=== PATIENT | male | born 1960 | race Caucasian/White ===

== ENCOUNTER 2018-09-18 08:33 | Inpatient (IN) | payer BC, SELFPAY ==
[2018-09-18] VITALS (32 sets, daily range): BP systolic 109–180; BP diastolic 81–113; PULSE 56–79; RESP 11–22; TEMP 36.2–36.9; O2SAT 94–100; BMI 30.7; BMI 29.9
--- NOTE | 2018-09-18 08:39 | RAD_ITS ---
STUDY: X-RAY CHEST REASON FOR EXAM: Male, 58 years old. Chest pain TECHNIQUE: Single AP portable view of the chest. COMPARISON: None. FINDINGS: The lungs are clear and expanded. There is no demonstrated pleural abnormality. Normal size heart. Normal mediastinum and gumaro. Normal visualized pulmonary arteries. Normal visualized aortic arch and descending thoracic aorta. Normal visualized thoracic spine. Normal visualized ribs, clavicles, and shoulders. There is no demonstrated abnormality of the visualized soft tissue structures of the upper abdomen. RAD/Chest 1 View (Portable) IMPRESSION: Normal x-ray examination of the chest. Electronically Signed: Guilherme Ruelas DO at 9:23 EST Tel , Service support ,
--- NOTE | 2018-09-18 08:39 | EKG12_ITS ---
Test Reason : CP Blood Pressure : / mmHG Vent. Rate : 074 BPM Atrial Rate : 074 BPM P-R Int : 152 ms QRS Dur : 094 ms QT Int : 350 ms P-R-T Axes : 019 030 145 degrees QTc Int : 388 ms Normal sinus rhythm ST & T wave abnormality, consider anterolateral ischemia Abnormal ECG Confirmed by DWAYNE WARNER, BRITNEY ([id number]), scientific publications editor ASHKAN MATTA ([id number]) on 09/23/2018 5:03:12 PM Referred By: INES Confirmed By:BRITNEY RICE MD
[2018-09-18] MEDS: Aspirin 81 MG TAB.CHEW 324 MG PO (08:43)
--- NOTE | 2018-09-18 08:47 | ED.VISSUMM ---
- ER Visit Summary Date of Service: 09/18/18 Chief Complaint: Chest pain History of Present Illness: The patient is a 58 M history of anxiety. No cardiac history. Thinks he may have had a stress test about 10 years ago that was negative but nothing more recent. He is never had a he states for the last several months he has had a bronchitis. He was on prednisone which is since he has finished. States of the last week he has had exertional chest discomfort. Heaviness in the midsternal region. No radiation. No pain in his jaw, neck or down his left arm. No back pain. He does have associated dyspnea. This is definitely worsened by exertion and better with rest. 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 Also with walking steps she has exertional chest pain. Currently is pain-free. Physical Examination: Middle-aged male. No acute distress. Vital signs are stable. He is afebrile. His pulse ox is 9 9% on room air. No hypoxia. H EENT exam unremarkable. JVD. Lungs clear to auscultation bilaterally. Heart regular rate and rhythm no murmur rate about 80. Chest wall nontender. Abdomen soft and nontender. Normal bowel sounds no peritoneal signs. Patient is moving all 4 extremities. Calves are nontender without edema or cords. He has equal and symmetrical strong radial pulses. Normal bottle and glass inspector strength. Normal dorsi and plantar flexion. Back is nontender. Neurologically he is awake and alert with no focal motor deficits. Test Results: CBC normal. BMP normal. Troponin abnormal 0.722 and elevated. EKG normal sinus rhythm rate of 74. Inverted T waves in V2 through V6 with subtle ST-T wave depression. Also in lead I and aVL. No ST elevation. No acute AL. Portable 1 view chest x-ray normal cardiac silhouette mediastinum. Emergency Department Course and Treatment: Patient is currently symptom and pain-free. He was given p.o. aspirin in the ER. Repeat exam at ks 9:18 AM patient is doing well. He and I and his went over all his test results. I have cardiology on page. Treatment Plan: [] Disposition: Admission Impression: Acute chest pain with an abnormal EKG and elevated troponin Acute coronary syndrome This note was generated with HubCh[employer]ation software. It may contain incorrect words, spelling, and punctuation that were not noted in review of the chart prior to signing ED Disposition - Plan for ED Patient: Referrals: Anand Shaver MD [Primary Care Provider] -
[2018-09-18 08:54] LABS: Absolute Lymphocyte Count 2.84 X10^3/ul (0.83-4.51); Absolute Neutrophil Count 3.2 X10^3/uL (2.0-7.7); Basophil# 0.01 X10^3/uL; Basophil% 0.1 % (0-1); Eosinophils% 1.5 % (0-5); Hematocrit 47.8 % (40-54); Hemoglobin 15.5 g/dl (13.0-16.5); Lymphocyte # 2.84 X10^3/ul (4.0); Mean Corp Hgb Conc 32.4 g/gl (32-36); Mean Corpuscular Hgb 30.5 pg (27.0-32.0); Mean Corpuscular Volume 94.1 fL (80-94); Mean Platelet Vol. 11.8 fl (6.2-12.0); Monocyte# 0.56 X10^3/uL; Monocyte% 8.3 % (0-10); Neutrophil # 3.23 X10^3/uL (2.7-7.7); Neutrophil % 47.8 % (47-70); Platelet Count 165 K/mm3 (150-450); RBC Distribution Width CV 13.7 % (11.6-14.6); RBC Distribution Width SD 46.9 fl (35.1-43.9); Red Blood Count 5.08 M/mm3 (4.6-6.2); White Blood Count 6.8 K/mm3 (4.4-11.0)
[2018-09-18 08:56] LABS: POSITIVE COUNT NO; POSITIVE DIFFERENTIAL NO; POSITIVE MORPHOLOGY NO
--- NOTE | 2018-09-18 08:58 | ED.DCSUM_ITS ---
- ER Visit Summary Date of Service: 09/18/18 Chief Complaint: Chest pain History of Present Illness: The patient is a 58 M history of anxiety. No cardiac history. Thinks he may have had a stress test about 10 years ago that was negative but nothing more recent. He is never had a he states for the last several months he has had a bronchitis. He was on prednisone which is since he has finished. States of the last week he has had exertional chest discomfort. Heaviness in the midsternal region. No radiation. No pain in his jaw, neck or down his left arm. No back pain. He does have associated dyspnea. This is definitely worsened by exertion and better with rest. 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 Also with walking steps she has exertional chest pain. Currently is pain-free. Physical Examination: Middle-aged male. No acute distress. Vital signs are stable. He is afebrile. His pulse ox is 9 9% on room air. No hypoxia. H EENT exam unremarkable. JVD. Lungs clear to auscultation bilaterally. Heart regul ar rate and rhythm no murmur rate about 80. Chest wall nontender. Abdomen soft and nontender. Normal bowel sounds no peritoneal signs. Patient is moving all 4 extremities. Calves are nontender without edema or cords. He has equal and symmetrical strong radial pulses. Normal audio visual secretary strength. Normal dorsi and plantar flexion. Back is nontender. Neurologically he is awake and alert with no focal motor deficits. Test Results: CBC normal. BMP normal. Troponin abnormal 0.722 and elevated. EKG normal sinus rhythm rate of 74. Inverted T waves in V2 through V6 with sub tle ST-T wave depression. Also in lead I and aVL. No ST elevation. No acute [place]. Portable 1 view chest x-ray normal cardiac silhouette mediastinum. Emergency Department Course and Treatment: Patient is currently symptom and pain-free. He was given p.o. aspirin in the ER. Repeat exam at la 9:18 AM patient is doing well. He and I and his went over all his test results. I have cardiology on page. Treatment Plan: [] Disposition: Admission Impression: Acute chest pain with an abnormal EKG and elevated troponin Acute coronary syndrome This note was generated with Operating Analyticsation software. It may contain incorrect words, spelling, and punctuation that were not noted in review of the chart prior to signing ED Disposition - Plan for ED Patient: Referrals: Anand Shaver MD [Primary Care Provider] -
[2018-09-18 09:12] LABS: BUN 15 mg/dL (7-18); Creatinine, Serum 1.03 mg/dL (0.70-1.30); Estimated Creatinine Clearance 86.19 ml/min; Glucose 104 mg/dL (74-106)
[2018-09-18 09:13] LABS: Anion Gap 7 (5-15); BUN/Creat Ratio 14.6 RATIO (10-20); Calcium,Total 9.2 mg/dL (8.5-10.1); Chloride 105 mmol/L (98-107); EST Glomerular Filtration Rate 78 mL/min (>60); Est Glom Filt Rate - Afr Amer 95 mL/min (>60); Potassium 3.8 mmol/L (3.5-5.1); Sodium Level 141 mmol/L (136-145)
--- NOTE | 2018-09-18 09:18 | ED.RN ---
LAB RESULTED ELEVATED TROPONIN, PHYSICIAN NOTIFIED
--- NOTE | 2018-09-18 09:57 | CASEMGMT ---
According to [place] website, the following are in-network tertiary facilities: [facility], [facility], [facility], [facility], [facility], [facility], [facility], [place], [facility], and . Maral SUAREZ CM
[2018-09-18] MEDS: TICAGRELOR 90 MG TABLET 180 MG PO (10:04)
--- NOTE | 2018-09-18 10:15 | PCM.CONS.C ---
Reason for Consult Date of Consultation: 09/18/18 History of Present Illness: The patient is a 58 year old M with no previous medical history who says that more recently has been having some exertional chest burning going up his neck. 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 He also did some shoveling of snow yesterday and think that he felt it. He also notes that his exercise capacity has reduced significantly. In addition to this he has had some numbness and tingling sensation that he is not been able to explain. He has not had any nausea no dizziness or diaphoresis no near syncope or syncope. This morning after feeling the same sensation at work he was uncomfortable and so he came to the emergency room for an evaluation. His electrocardiogram demonstrated lateral ST changes and his troponin was noted to be abnormal. Cardiology was called from the ER for further evaluation. [] Past Medical History Allergies/Adverse Reactions: Allergies No Known Allergies Allergy (Verified 09/18/18 08:36) Home Medications: Ambulatory Orders Medication Instructions Recorded Propranolol HCl [Inderal] 10 mg PO PRN PRN 09/18/18 Surgical History: appendectomy Lives: With Family Smoking Status: Never smoker Alcohol: None Drugs: None Review of Systems - Review of Systems General: Reports: Fatigue. Denies: Fever, Night Sweats Cardiovascular: Reports: Chest Discomfort with Exertion, Chest Tightness. Denies: Chest Discomfort, Shortness of Breath, Orthopnea, PND, Peripheral Edema, Palpitations, Lightheadedness, Dizziness, Near Syncope, Syncope Respiratory: Denies: Cough, Sputum Production, Hemoptysis Gastrointestinal: Reports: Heart Burn. Denies: Hematemesis, Hematochezia, Melena Genitourinary: Denies: Dysuria, Hematuria Muscoloskeletal: Denies: Myalgias Skin: Denies: Rash Neurological: Denies: Dizziness Psychiatric: Reports: Anxiety Hematologic/ Lymphatic: Denies: Anemia Subjectve: Pleasant gentleman in no apparent distress Objective: Vital Signs Temp Pulse Resp BP Pulse Ox 98.4 F 62 12 143/99 H 96 09/18/18 08:34 09/18/18 10:05 09/18/18 10:05 09/18/18 10:05 09/18/18 10:05 Oxygen Delivery Method Room Air Weight: 233 lb 0.458 oz Body Mass Index (BMI) 30.7 General: Awake, Alert, Oriented x 3 HEENT: PERRL, EOMI, Sclera Non Icteric Neck: Supple, Good ROM, No Lymph Node Enlargement Lungs: Clear to auscultation Cardiovascular: Regular Rhythm, Normal S1, Normal S2, No Murmurs, No Rubs, No Gallops Vascular: No Carotid Bruits, Normal Femoral Pulses, Normal Radial Pulses, Normal Dorsalis Pedal Pulse, Normal Posterior Tibial Pulses Abdomen: Bowel Sounds Present, Soft, Non Tender, No HSM, No Organomegaly Extremities: No Cyanosis, No Clubbing, No edema Musculoskeletal: No Erythema Neurological: No Focal Motor or Sensory Deficit 09/18/18 08:36: WBC 6.8, RBC 5.08, Hgb 15.5, Hct 47.8, MCV 94.1 H, MCH 30.5, MCHC 32.4, RDW 13.7, RDW Differential 46.9 H, Plt Count 165, MPV 11.8, Immature Gran % (Auto) 0.300, Neut % (Auto) 47.8, Lymph % (Auto) 42.0 H, [place] % (Auto) 8.3, Eos % (Auto) 1.5, Baso % (Auto) 0.1, Absolute Neuts (auto) 3.2, Total Counted Not Reportable 09/18/18 08:36: Sodium 141, Potassium 3.8, Chloride 105, Carbon Dioxide 29.0, Anion Gap 7, BUN 15, Creatinine 1.03, Est GFR (MDRD) Af Amer 95, Est GFR (MDRD) Non-Af 78, BUN/Creatinine Ratio 14.6, Glucose 104, Calcium 9.2, Troponin I 0.722 H* Rhythm: EKG: Normal sinus rhythm with lateral ST changes ECHO: Stress Test: Cardiac Cath: PCI: CT Surgery: Holter monitor: EPS: PPM: CXR: Chest CT Scan: Assessment/Plan 1. Non-ST elevation myocardial infarction Patient presents with chest discomfort which is concerning for non-ST elevation myocardial infarction and progressive angina. My recommendation at this time is to load him with aspirin, Brilinta, and expedite his investigation and management with a cardiac catheterization. The risk benefits and alternatives been explained to him he understands and agrees to proceed. Depending on the findings further recommendations will be made. Cardiac cath showed: Normal left main coronary artery Left anterior descending artery with high-grade 95% proximal small calcified stenosis Left circumflex artery with mild disease Right coronary artery with mild diffuse disease Preserved left ventricular systolic function Based on the above angiographic findings the patient would be referred for immediate angioplasty. Agent would continue with aggressive risk factor modification Thank you for allowing me to participate in the care of your patient. Please don't hesitate to call if any issues arise
--- NOTE | 2018-09-18 10:19 | CON.PCM_ITS ---
Reason for Consult Date of Consultation: 09/18/18 History of Present Illness: The patient is a 58 year old M with no previous medical history who says that more recently has been having some exertional chest burning going up his neck. 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 He also did some shoveling of snow yesterday and think that he felt it. He also notes that his exercise capacity has reduced significantly. In addition to this he has had some numbness and tingling sensation that he is not been able to explain. He has not had any nausea no dizziness or diaphoresis no near syncope or syncope. This morning after feeling the same sensation at work he was uncomfortable and so he came to the emergency room for an evaluation. His electrocardiogram demonstrated lateral ST changes and his troponin was noted to be abnormal. Cardiology was called from the ER for further evaluation. [] Past Medical History Allergies/Adverse Reactions: Allergies No Known Allergies Allergy (Verified 09/18/18 08:36) Home Medications: Ambulatory Orders Medication Instructions Recorded Propranolol HCl [Inderal] 10 mg PO PRN PRN 09/18/18 Surgical History: appendectomy Lives: With Family Smoking Status: Never smoker Alcohol: None Drugs: None Review of Systems - Review of Systems General: Reports: Fatigue. Denies: Fever, Night Sweats Cardiovascular: Reports: Chest Discomfort with Exertion, Chest Tightness. Denies: Chest Discomfort, Shortness of Breath, Orthopnea, PND, Peripheral Edema, Palpitations, Lightheadedness, Dizziness, Near Syncope, Syncope Respiratory: Denies: Cough, Sputum Production, Hemoptysis Gastrointestinal: Reports: Heart Burn. Denies: Hematemesis, Hematochezia, Melena Genitourinary: Denies: Dysuria, Hematuria Muscoloskeletal: Denies: Myalgias Skin: Denies: Rash Neurological: Denies: Dizziness Psychiatric: Reports: Anxiety Hematologic/ Lymphatic: Denies: Anemia Subjectve: Pleasant gentleman in no apparent distress Objective: Vital Signs Temp Pulse Resp BP Pulse Ox 98.4 F 62 12 143/99 H 96 09/18/18 08:34 09/18/18 10:05 09/18/18 10:05 09/18/18 10:05 09/18/18 10:05 Oxygen Delivery Method Room Air Weight: 233 lb 0.458 oz Body Mass Index (BMI) 30.7 General: Awake, Alert, Oriented x 3 HEENT: PERRL, EOMI, Sclera Non Icteric Neck: Supple, Good ROM, No Lymph Node Enlargement Lungs: Clear to auscultation Cardiovascular: Regular Rhythm, Normal S1, Normal S2, No Murmurs, No Rubs, No G allops Vascular: No Carotid Bruits, Normal Femoral Pulses, Normal Radial Pulses, Normal Dorsalis Pedal Pulse, Normal Posterior Tibial Pulses Abdomen: Bowel Sounds Present, Soft, Non Tender, No HSM, No Organomegaly Extremities: No Cyanosis, No Clubbing, No edema Musculoskeletal: No Erythema Neurological: No Focal Motor or Sensory Deficit 09/18/18 08:36: WBC 6.8, RBC 5.08, Hgb 15.5, Hct 47.8, MCV 94.1 H, MCH 30.5, MCHC 32.4, RDW 13.7, RDW Differential 46.9 H, Plt Count 165, MPV 11.8, Immature Gran % (Auto) 0.300, Neut % (Auto) 47.8, Lymph % (Auto) 42.0 H, [place] % (Auto) 8.3, Eos % (Auto) 1.5, Baso % (Auto) 0.1, Absolute Neuts (auto) 3.2, Total Counted Not Reportable 09/18/18 08:36: Sodium 141, Potassium 3.8, Chloride 105, Carbon Dioxide 29.0, Anion Gap 7, BUN 15, Creatinine 1.03, Est GFR (MDRD) Af Amer 95, Est GFR (MDRD) Non-Af 78, BUN/Creatinine Ratio 14.6, Glucose 104, Calcium 9.2, Troponin I 0.722 H* Rhythm: EKG: Normal sinus rhythm with lateral ST changes ECHO: Stress Test: Cardiac Cath: PCI: CT Surgery: Holter monitor: EPS: PPM: CXR: Chest CT Scan: Assessment/Plan 1. Non-ST elevation myocardial infarction * Patient presents with chest discomfort which is concerning for non-ST elevation myocardial infarction and progressive angina. * My recommendation at this time is to load him with aspirin, Brilinta, and expedite his investigation and management with a cardiac catheterization. The risk benefits and alternatives been explained to him he understands and agrees to proceed. Depending on the findings further recommendations will be made. * * * Cardiac cath showed: * Normal left main coronary artery * Left anterior descending artery with high-grade 95% proximal small calcified stenosis * Left circumflex artery with mild disease * Right coronary artery with mild diffuse disease * Preserved left ventricular systolic function * Based on the above angiographic findings the patient would be referred for immediate angioplasty. * Agent would continue with aggressive risk factor modification * Thank you for allowing me to participate in the care of your patient. Please don't hesitate to call if any issues arise
--- NOTE | 2018-09-18 11:16 | CL.D_ITS ---
Patient Name: PAIGE REGALADO Study Date: 09/18/2018 Performing: Cliff Quinones MD Ht: 72.83 inches 185 cm : 1960 Wt: 233.69 lbs 106 kg Age: 58 Gender: male BSA: 2.3 PROCEDURE(S) PERFORMED [id number] CLINICAL PROFILE AND INDICATIONS Indications: Worsening Angina Heart Failure: None Stress/Imaging Stress/Image Study Performed: No CONCLUSIONS Severe disease involving a calcified left anterior descending artery stenosis, mild disease noted in the right coronary artery. Preserved ejection fraction noted RECOMMENDATIONS Referred for immediate PCI DESCRIPTION OF PROCEDURE The patient arrived to the procedure lab. The risks and benefits of the procedure as well as a full d escription of our services here and current unavailability of surgical backup were fully explained to the patient and/or their significant other prior to the catheterization. The Timeout was completed, verifying the correct patient and procedure. The patient's procedural site was prepped and draped in the usual fashion. Local anesthetic was given subcutaneously to right radial region with Lidocaine 2% . Using a modified Seldinger technique, arterial access was obtained via the right radial artery, a 6 Fr sheath was inserted. Left Coronary Artery selective angiography was performed in multiple views u sing a 5 Fr. 4.0 [place] catheter. Right Coronary Artery selective angiography was then performed in mu ltiple views using a 5 Fr. 4.0 [place] catheter. Left Ventriculography was performed in [place] projection using a 5 Fr. Pigtail catheter. LV to AO pullback pressures were then recorded. CORONARY ANGIOGRAPHY DOMINANCE: Right Dominant LEFT HEART ASSESSMENT Left Ventricular Ejection Fraction: by LV Gram 60 % Normal LV wall motion Normal Left Ventricular systolic function LEFT MAIN: Angiographically normal LEFT ANTERIOR DECENDING ARTERY: PROX LAD: Moderate calcification, 95 % Stenosis CIRCUMFLEX ARTERY: Non-obstructive RIGHT CORONARY ARTERY: Mild luminal irregularities less than 30% COLLATERAL FLOW: Collateral flow from Right to Left COMPLICATIONS PROCEDURE MEDICATIONS Fentanyl 50 mcg IV Versed 1 mg IV Versed 1 mg IV Versed 1 mg IV Fentanyl 25 mcg IV Versed 1 mg IV Oxygen: 2 L/min via nasal cannula Heparin diluted in 23cc Heparinized saline. Patient given 10cc IA of this solution. 09/18/2018 10:37: 08 Heparin 8000 unit(s) IV 09/18/2018 11:05:31 Verapamil 2.5mg, Ntg 100mcgs, 2000 units of Heparin diluted in 23cc Heparinized saline. Patient give n 10cc IA of this solution. 09/18/2018 10:37:08 SUMMARY OF HEMODYNAMIC DATA Time AIR REST ECG 10:21:30 AO 105/72 (89) SA 10:39:10 LV 122/8, 13 10:52:55 LV 112/7, 13 10:53:01 LV 134/-1, 16 10:55:57 LVp 133/-2, 17 10:56:00 AOp 132/73 (97) 10:56:06 Signed By Cliff Quinones MD On 09/18/2018 11:15:41 AM Cliff Quinones MD
--- NOTE | 2018-09-18 11:48 | EKG12_ITS ---
Test Reason : POST PCI Blood Pressure : / mmHG Vent. Rate : 056 BPM Atrial Rate : 056 BPM P-R Int : 172 ms QRS Dur : 100 ms QT Int : 404 ms P-R-T Axes : 026 063 115 degrees QTc Int : [address] & T wave abnormality, consider anterior ischemia Abnormal ECG When compared with ECG of 18-SEP-2018 08:35, MANUAL COMPARISON REQUIRED, DATA IS UNCONFIRMED Confirmed by DWAYNE WARNER, BRITNEY ([id number]), editorial assistant ASHKAN MATTA ([id number]) on 09/23/2018 5:29:57 PM Referred By: MARIA FERNANDA Confirmed By:BRITNEY RICE MD
--- NOTE | 2018-09-18 11:50 | CL.I_ITS ---
Patient Name: PAIGE REGALADO Study Date: 09/18/2018 Performing: Chastity Yepez MD Ht: 73 inches 185 cm : 1960 Wt: 234 lbs 106 kg Age: 58 Gender: male BSA: 2.3 PROCEDURE(S) PERFORMED [id number] W OR WO PTCA, SINGLE CORONARY ARTERY CLINICAL PROFILE AND CO-MORBIDITIES Indications: Worsening Angina Heart Failure: None Stress/Imaging Stress/Image Study Performed: No CAD Presentations: Unstable angina. CONCLUSIONS Successful PTCA/ALECIA Prox LAD using Resolute Integrity 3.0x38 mm, post-dilated proximally using 3.5 mm balloon RECOMMENDATIONS ASA Amanda Castro for at least 12 months Follow up with Dr. Quinones INTERVENTION INFORMATION LESION SITE: LAD (Proximal) Lesion Complexity: High/C, culprit lesion: Yes, thrombus present: No Pre Stenosis: 95 % Pre intervention KENYA flow: 3 PROCEDURE: Drug Eluting Stent with pre and post dilatation Post Stenosis: 0 % Post intervention KENYA flow: 3 COMPLICATIONS No Complications PROCEDURE MEDICATIONS Fentanyl 50 mcg IV Versed 1 mg IV Versed 1 mg IV Versed 1 mg IV Fentanyl 25 mcg IV Versed 1 mg IV Fentanyl 25 mcg IV Oxygen: 2 L/min via nasal cannula Heparin diluted in 23cc Heparinized saline. Patient given 10cc IA of this solution. 09/18/2018 10:37: 08 Heparin 8000 unit(s) IV 09/18/2018 11:05:31 Heparin 3000 unit(s) IV 09/18/2018 11:38:04 Nitro 200 mcg IC 09/18/2018 11:23:13 Verapamil 2.5mg, Ntg 100mcgs, 2000 units of Heparin diluted in 23cc Heparinized saline. Patient give n 10cc IA of this solution. 09/18/2018 10:37:08 SUMMARY OF HEMODYNAMIC DATA Time AIR REST ECG 10:21:30 AO 105/72 (89) SA 10:39:10 LV 122/8, 13 10:52:55 LV 112/7, 13 10:53:01 LV 134/-1, 16 10:55:57 LVp 133/-2, 17 10:56:00 AOp 132/73 (97) 10:56:06 Signed By Chastity Yepez MD On 09/18/2018 11:48:56 Chastity Yepez MD
[2018-09-18 11:52] LABS: ACT Activated Clotting Time 230 sec (74-137)
--- NOTE | 2018-09-18 12:52 | PCM.HP.STD ---
Problem List (1) Non-ST elevation OK (NSTEMI) Status: Acute History of Present Illness Date of Admission: 09/18/18 Chief Complaint: Chest pain. The patient is a 58 year old M with no significant past medical history presented to the emergency room because of chest pain. His illness started around couple of weeks ago with flulike symptoms, diagnosed with bronchitis and he was given prednisone. He mentioned that since he started on prednisone, he started having intermittent chest pain, retrosternal pain, described as burning, mild, not radiating and without aggravating or relieving factors. He finished the prednisone and yesterday, he felt good but later, he started having the chest pain again last night. Again the pain was retrosternal, described as burning, 4-5 out of 10 in severity, not radiating, associated with mild shortness of breath and dizziness, now worsened with exertion and without relieving factors. Today, he went to work and he has to go a couple of stairs and he started having the chest pain again, associated with shortness of breath and he decided to come to the ER. In the emergency department, his vital signs were stable. His routine blood work was unremarkable. His EKG revealed normal sinus rhythm with minimal T wave inversion in leads V3, V4, V5 and V6, no evidence of acute ST elevation. His troponin was elevated at 0.722. Chest x-ray showed no acute findings. He underwent emergent cardiac catheterization, found to have high-grade 95% stenosis of the proximal LAD, status post PTCA/ALECIA. He is being admitted for acute non-ST elevation OK status post intervention. Past Medical History Past Medical History (Chronic Problems): Chronic Problems Anxiety (Chronic) Allergies No Known Allergies Allergy (Verified 09/18/18 08:36) Home Medications: Ambulatory Orders Medication Instructions Recorded Propranolol HCl [Inderal] 10 mg PO PRN PRN 09/18/18 Surgical History: appendectomy, herniorrhaphy Psychiatric History: No pertinent psych hx Lives: Spouse/ Significant Other Smoking Status: Former smoker Alcohol: None Drugs: None - *Family History Maternal History Items: Hypertension Paternal History Items: No pertinent history, - - No family history of premature CAD. Review of Systems Constitutional: Reports: Weakness, Fatigue. Denies: Anorexia, Chills, Fever Eyes: Denies: Blurred vision, Double vision, Drainage, Redness HEENT: Denies: Difficulty Hearing, Ear Pain, Eye Pain, Nasal Congestion, Sore Throat Cardiovascular: Reports: Chest Pain, Chest Pressure, Light Headedness, Palpitations. Denies: Edema, Heaviness, Syncope Respiratory: Reports: Shortness of Breath, Shortness of breath upon exertion. Denies: Cough, Pleuritic Pain, Sputum production, Wheezing Gastrointestinal: Reports: Nausea. Denies: Abdominal Pain, Constipation, Diarrhea, Vomiting Genitourinary: Denies: Dysuria, Frequency, Hematuria Musculoskeletal: Denies: Arm Pain, Back Pain, Foot Pain Neurological: Denies: Balance problems, Double vision, Change in Speech, Slurred speech, Focal weakness, Headaches, Incoordination Psychiatric: Denies: Anxiety, Depression Endocrine: Denies: Change in Body Habitus, Polydipsia VTE Information - Inpt Only VTE Present on Admission: No VTE Mechan Device Prophylaxis: None VTE Pharm Prophylaxis ordered?: Yes Patient Problems: Active and Suspected Problems Non-ST elevation OK (NSTEMI) (Acute) - Physical Exam General: Alert, Oriented x3, Cooperative, No apparent distress HEENT: Atraumatic, PERRLA, EOMI, Normocephalic Oral: Moist Mucosa, No Gingival or Mucosal Lesions/ Ulcerations Neck: Supple, No JVD, Negative Carotid Bruits, Trachea Midline, Thyroid Normal Size and Texture Lungs: Clear to auscultation, Normal air movement, No rhonchi, No wheeze, No rales Cardiovascular: Regular rate, Regular Rhythm, Normal S1, Normal S2, PMI Normal Abdomen: Bowel Sounds Present, Soft, Non Tender, Non-Distended, No Hepato-splenomegaly Extremities: No clubbing, No cyanosis, No edema Skin: No rashes, No breakdown Lymphatic: No Cervical, Supraclavicular, or Inguinal Adenopathy Neurological: Cranial nerves II-XII grossly intact, Motor Exam 5/5 strength throughout Psych/Mental Status: Normal Affect, Appropriate, Alert and oriented to time, place, person, mood and affect Vital Signs Temp Pulse Resp BP Pulse Ox 97.2 F L 61 14 143/98 H 98 09/18/18 12:15 09/18/18 12:15 09/18/18 12:15 09/18/18 12:15 09/18/18 12:15 Oxygen Delivery Method Room Air Weight: 226 lb 13.69 oz Body Mass Index (BMI) 29.9 Laboratory Tests Past 24 Hrs 09/18/18 09/18/18 09/18/18 08:36 08:36 11:32 WBC 6.8 RBC 5.08 Hgb 15.5 Hct 47.8 MCV 94.1 H MCH 30.5 MCHC 32.4 RDW 13.7 RDW Differential 46.9 H Plt Count 165 MPV 11.8 Immature Gran % (Auto) 0.300 Neut % (Auto) 47.8 Lymph % (Auto) 42.0 H Yell % (Auto) 8.3 Eos % (Auto) 1.5 Baso % (Auto) 0.1 Absolute Neuts (auto) 3.2 Absolute Lymphs (auto) 2.84 Total Counted Not Reportable Activated Clotting Time 230 H Sodium 141 Potassium 3.8 Chloride 105 Carbon Dioxide 29.0 Anion Gap 7 BUN 15 Creatinine 1.03 Estim Creat Clear Calc 86.19 Est GFR (MDRD) Af Amer 95 Est GFR (MDRD) Non-Af 78 BUN/Creatinine Ratio 14.6 Glucose 104 Calcium 9.2 Troponin I 0.722 H* Clinical Impression(s) from Imaging Studies Chest X-Ray 09/18/18 08:39 IMPRESSION: Normal x-ray examination of the chest. Electronically Signed: Guilherme Ruelas DO at 9:23 EST Tel , Service support , Assessment/Plan All Active Problems Non-ST elevation OK (NSTEMI) (Acute) This is a 58 years old male patient presented to the emergency room because of chest pain, found to have elevated troponin with T wave inversion in lateral chest leads, underwent emergent cardiac catheterization, found to have high-grade 95% stenosis of the proximal LAD status post PTCA/ALECIA and he is being admitted for acute non-ST elevation OK. #1 acute non-ST elevation OK: EKG reviewed, revealed T wave inversion in lateral chest leads as well as sinus bradycardia, no acute ST elevation. Troponin is elevated as above. Status post cardiac catheterization, found to have high-grade proximal LAD lesion, status post PTCA/ALECIA. At this time, his vital signs are stable. Routine blood work was unremarkable. Chest x-ray showed no acute findings. Plan: Admit to ICU, cardiac monitoring, serial cardiac enzymes, repeat EKG tomorrow morning, start baby aspirin, Lipitor, Coreg, lisinopril, Brilinta twice daily, fasting lipid profile, IV fluids, IV morphine as needed, Tylenol as needed, IV antiemetics, repeat CBC and BMP tomorrow morning. Since his symptoms started after an episode of URTI/flu and bronchitis, pericarditis or less likely myocarditis is also in the differential diagnosis. #2 anxiety: Patient has been using propranolol as needed at home. Plan for Xanax p.o. as needed. #3 DVT prophylaxis: Subcu Lovenox. This note was generated with [employer] dictation software. It may contain incorrect words, spelling, and punctuation that were not noted in checking the note before signing. Code Visit Inpatient E&M: 19834 Init Hosp L3
--- NOTE | 2018-09-18 12:58 | HP.PCM_ITS ---
Problem List (1) Non-ST elevation TN (NSTEMI) Status: Acute History of Present Illness Date of Admission: 09/18/18 Chief Complaint: Chest pain. The patient is a 58 year old M with no significant past medical history presented to the emergency room because of chest pain. His illness started around couple of weeks ago with flulike symptoms, diagnosed with bronchitis and he was given prednisone. He mentioned that since he started on prednisone, he started having intermittent chest pain, retrosternal pain, described as burning, mild, not radiating and without aggravating or relieving factors. He finished the prednisone and yesterday, he felt good but later, he started having the chest pain again last night. Again the pain was retrosternal, described as burning, 4-5 out of 10 in severity, not radiating, associated with mild shortness of breath and dizziness, now worsened with exertion and without relieving factors. Today, he went to work and he has to go a couple of stairs and he started having the chest pain again, associated with shortness of breath and he decided to come to the ER. In the emergency department, his vital signs were stable. His routine blood work was unremarkable. His EKG revealed normal sinus rhythm with minimal T wave inversion in leads V3, V4, V5 and V6, no evidence of acute ST elevation. His troponin was elevated at 0.722. Chest x- ray showed no acute findings. He underwent emergent cardiac catheterization, found to have high-grade 95% stenosis of the proximal LAD, status post PTCA/ALECIA. He is being admitted for acute non-ST elevation TN status post intervention. Past Medical History Past Medical History (Chronic Problems): Chronic Problems Anxiety (Chronic) Allergies No Known Allergies Allergy (Verified 09/18/18 08:36) Home Medications: Ambulatory Orders Medication Instructions Recorded Propranolol HCl [Inderal] 10 mg PO PRN PRN 09/18/18 Surgical History: appendectomy, herniorrhaphy Psychiatric History: No pertinent psych hx Lives: Spouse/ Significant Other Smoking Status: Former smoker Alcohol: None Drugs: None - *Family History Maternal History Items: Hypertension Paternal History Items: No pertinent history, - - No family history of premature CAD. Review of Systems Constitutional: Reports: Weakness, Fatigue. Denies: Anorexia, Chills, Fever Eyes: Denies: Blurred vision, Double vision, Drainage, Redness HEENT: Denies: Difficulty Hearing, Ear Pain, Eye Pain, Nasal Congestion, Sore Throat Cardiovascular: Reports: Chest Pain, Chest Pressure, Light Headedness, Palpitations. Denies: Edema, Heaviness, Syncope Respiratory: Reports: Shortness of Breath, Shortness of breath upon exertion. Denies: Cough, Pleuritic Pain, Sputum production, Wheezing Gastrointestinal: Reports: Nausea. Denies: Abdominal Pain, Constipation, Diarrhea, Vomiting Genitourinary: Denies: Dysuria, Frequency, Hematuria Musculoskeletal: Denies: Arm Pain, Back Pain, Foot Pain Neurological: Denies: Balance problems, Double vision, Change in Speech, Slurred speech, Focal weakness, Headaches, Incoordination Psychiatric: Denies: Anxiety, Depression Endocrine: Denies: Change in Body Habitus, Polydipsia VTE Information - Inpt Only VTE Present on Admission: No VTE Mechan Device Prophylaxis: None VTE Pharm Prophylaxis ordered?: Yes Patient Problems: Active and Suspected Problems Non-ST elevation TN (NSTEMI) (Acute) - Physical Exam General: Alert, Oriented x3, Cooperative, No apparent distress HEENT: Atraumatic, PERRLA, EOMI, Normocephalic Oral: Moist Mucosa, No Gingival or Mucosal Lesions/ Ulcerations Neck: Supple, No JVD, Negative Carotid Bruits, Trachea Midline, Thyroid Normal Size and Texture Lungs: Clear to auscultation, Normal air movement, No rhonchi, No wheeze, No rales Cardiovascular: Regular rate, Regular Rhythm, Normal S1, Normal S2, PMI Normal Abdomen: Bowel Sounds Present, Soft, Non Tender, Non-Distended, No Hepato- splenomegaly Extremities: No clubbing, No cyanosis, No edema Skin: No rashes, No breakdown Lymphatic: No Cervical, Supraclavicular, or Inguinal Adenopathy Neurological: Cranial nerves II-XII grossly intact, Motor Exam 5/5 strength throughout Psych/Mental Status: Normal Affect, Appropriate, Alert and oriented to time, place, person, mood and affect Vital Signs Temp Pulse Resp BP Pulse Ox 97.2 F L 61 14 143/98 H 98 09/18/18 12:15 09/18/18 12:15 09/18/18 12:15 09/18/18 12:15 09/18/18 12:15 Oxygen Delivery Method Room Air Weight: 226 lb 13.69 oz Body Mass Index (BMI) 29.9 Laboratory Tests Past 24 Hrs 09/18/18 09/18/18 09/18/18 08:36 08:36 11:32 WBC 6.8 RBC 5.08 Hgb 15.5 Hct 47.8 MCV 94.1 H MCH 30.5 MCHC 32.4 RDW 13.7 RDW Differential 46.9 H Plt Count 165 MPV 11.8 Immature Gran % (Auto) 0.300 Neut % (Auto) 47.8 Lymph % (Auto) 42.0 H [place] % (Auto) 8.3 Eos % (Auto) 1.5 Baso % (Auto) 0.1 Absolute Neuts (auto) 3.2 Absolute Lymphs (auto) 2.84 Total Counted Not Reportable Activated Clotting Time 230 H Sodium 141 Potassium 3.8 Chloride 105 Carbon Dioxide 29.0 Anion Gap 7 BUN 15 Creatinine 1.03 Estim Creat Clear Calc 86.19 Est GFR (MDRD) Af Amer 95 Est GFR (MDRD) Non-Af 78 BUN/Creatinine Ratio 14.6 Glucose 104 Calcium 9.2 Troponin I 0.722 H* Clinical Impression(s) from Imaging Studies Chest X-Ray 09/18/18 08:39 IMPRESSION: Normal x-ray examination of the chest. Electronically Signed: Guilherme Ruelas DO at 9:23 EST Tel , Service support , Assessment/Plan All Active Problems Non-ST elevation TN (NSTEMI) (Acute) This is a 58 years old male patient presented to the emergency room because of chest pain, found to have elevated troponin with T wave inversion in lateral chest leads, underwent emergent cardiac catheterization, found to have high- grade 95% stenosis of the proximal LAD status post PTCA/ALECIA and he is being admitted for acute non-ST elevation TN. #1 acute non-ST elevation TN: EKG reviewed, revealed T wave inversion in lateral chest leads as well as sinus bradycardia, no acute ST elevation. Troponin is elevated as above. Status post cardiac catheterization, found to have high- grade proximal LAD lesion, status post PTCA/ALECIA. At this time, his vital signs are stable. Routine blood work was unremarkable. Chest x-ray showed no acute findings. Plan: Admit to ICU, cardiac monitoring, serial cardiac enzymes, repeat EKG tomorrow morning, start baby aspirin, Lipitor, Coreg, lisinopril, Brilinta twice daily, fasting lipid profile, IV fluids, IV morphine as needed, Tylenol as needed, IV antiemetics, repeat CBC and BMP tomorrow morning. Since his symptoms started after an episode of URTI/flu and bronchitis, pericarditis or less likely myocarditis is also in the differential diagnosis. #2 anxiety: Patient has been using propranolol as needed at home. Plan for Xanax p.o. as needed. #3 DVT prophylaxis: Subcu Lovenox. This note was generated with [employer] dictation software. It may contain incorrect words, spelling, and punctuation that were not noted in checking the note before signing. Code Visit Inpatient E&M: 00179 Init Hosp L3
[2018-09-18] MEDS: 0.9% Normal Saline 1,000 ML 150 ML IV (13:05)
[2018-09-18] MEDS: Carvedilol 3.125 MG TABLET PO ×2 (13:45→21:48)
[2018-09-18] MEDS: Lisinopril 20 MG Tablet PO (13:45)
[2018-09-18] MEDS: Enoxaparin 40 MG/0.4 ML Syringe SC (13:45)
[2018-09-18] MEDS: ALPRAZolam 0.5 MG Tablet PO (13:46)
--- NOTE | 2018-09-18 14:19 | CRPHASE1 ---
Patient Data/Charges Media Relations Specialist:: Fabrice Pemberton Phase I Charge:: Level I - Education Risk Factors/Lifestyle Smoking Status: Former smoker Hx Hypertension: Yes - since early Hx Diabetes Mellitus Type 1: No Hx Obesity: Yes Height: 1.85 m Weight:: 105.687 kg BMI: 30.7 ETOH: Yes Caffeine: Yes Substance Abuse: No Family History: Cancer, High Cholesterol, Hypertension Phase I Education Given On:: [place] - gave booklet Issues Affecting Care:: None Knowledge of Condition:: Yes Hospital Course Pain Description: Sharp, Tightness Pain Intensity: 4 Cardiac Cath Date:: 09/18/18 Medical/Surgical History SD:: No Angina:: Yes Hypertension:: Yes Dyslipidemia:: Yes PTCA:: Yes Discharge/Home/Social Eval Discharge Disposition: Home Marital Status:
--- NOTE | 2018-09-18 14:23 | CRPHASE1_ITS ---
Patient Data/Charges Egg Grader:: Fabrice Pemberton Phase I Charge:: Level I - Education Risk Factors/Lifestyle Smoking Status: Former smoker Hx Hypertension: Yes - since early Hx Diabetes Mellitus Type 1: No Hx Obesity: Yes Height: 1.85 m Weight:: 105.687 kg BMI: 30.7 ETOH: Yes Caffeine: Yes Substance Abuse: No Family History: Cancer, High Cholesterol, Hypertension Phase I Education Given On:: [place] - gave booklet Issues Affecting Care:: None Knowledge of Condition:: Yes Hospital Course Pain Description: Sharp, Tightness Pain Intensity: 4 Cardiac Cath Date:: 09/18/18 Medical/Surgical History DC:: No Angina:: Yes Hypertension:: Yes Dyslipidemia:: Yes PTCA:: Yes Discharge/Home/Social Eval Discharge Disposition: Home Marital Status:
--- NOTE | 2018-09-18 14:25 | CRPH1.INSTRU ---
General Education CAD and cardiac anatomy and function:: Patient communicates acknowledgment Explanation of diagnoses and procedures:: Patient communicates acknowledgment Sign/Symptoms of OK:: Patient communicates acknowledgment Emergency procedures and activation of EMS: Patient communicates acknowledgment Compliance of all prescribed medications: Patient communicates acknowledgment Smoking Patient Nicotine/Smoking Risk Factors Are:: Non-smoker Dyslipidemia Recommendations Include:: Lipid profile not available Hypertension Patient Hypertension Risk Factors Are:: No documented hx of HTN Heart Disease Heart Disease Response Code:: Patient communicates acknowledgment Diabetes Patient Diabetes Risk Factors Are:: No documented hx of diabetes Metabolic Syndrome Metabolic Syndrome Response Code:: Patient communicates acknowledgment Sedentary Recommendations Include:: Aerobic exercise 5-7 times/week for 20-30 minutes continuously - he exercises at [employer]/5 days a week before this happened. Stress Patient Stress Risk Factors Are:: Patient denies stress as a risk factor
--- NOTE | 2018-09-18 14:28 | CRPH1.INST_ITS ---
General Education CAD and cardiac anatomy and function:: Patient communicates acknowledgment Explanation of diagnoses and procedures:: Patient communicates acknowledgment Sign/Symptoms of [place]:: Patient communicates acknowledgment Emergency procedures and activation of EMS: Patient communicates acknowledgment Compliance of all prescribed medications: Patient communicates acknowledgment Smoking Patient Nicotine/Smoking Risk Factors Are:: Non-smoker Dyslipidemia Recommendations Include:: Lipid profile not available Hypertension Patient Hypertension Risk Factors Are:: No documented hx of HTN Heart Disease Heart Disease Response Code:: Patient communicates acknowledgment Diabetes Patient Diabetes Risk Factors Are:: No documented hx of diabetes Metabolic Syndrome Metabolic Syndrome Response Code:: Patient communicates acknowledgment Sedentary Recommendations Include:: Aerobic exercise 5-7 times/week for 20-30 minutes continuously - he exercises at [employer] days a week before this happened. Stress Patient Stress Risk Factors Are:: Patient denies stress as a risk factor
--- NOTE | 2018-09-18 15:35 | CASEMGMT ---
RN CM Assessment Presentation:NSTEMI Intro role of CM and purpose of RN CM assessment. PCP: Dr. Shaver Specialists: Dr. Yepez Preferred Pharmacy: Insurance: [facility] [place] Prescription Benefit: yes through [employer]. Brillinta ordered. Pt Savings card given to pt and discussed. LNOK: , Mili Miller Living Arrangements: Lives independently with and continues to work. Pt states they work out 4 days/week together and he does not need any assistance with ADL's. Transportation: is able drive pt if he cannot. DME: No DME needed. (denied use of oxygen, cpap or nebulizers) HHC: none DC PLAN: Home on discharge. Sebas ZHENG RN ACM
[2018-09-18] MEDS: Acetaminophen 325 MG Tablet 650 MG PO (16:06)
[2018-09-18] MEDS: TICAGRELOR 90 MG TABLET PO (21:48)
[2018-09-18] MEDS: Atorvastatin Calcium 40 MG Tablet PO (21:48)
[2018-09-18] MEDS: MELATONIN 3 MG TABLET PO (21:49)
[2018-09-19] VITALS (12 sets, daily range): BP systolic 112–130; BP diastolic 67–86; PULSE 55–87; RESP 12–20; TEMP 36.8–37; O2SAT 95–99
[2018-09-19 04:56] LABS: Hematocrit 45.5 % (40-54); Hemoglobin 14.9 g/dl (13.0-16.5); Mean Corp Hgb Conc 32.7 g/gl (32-36); Mean Corpuscular Hgb 30.5 pg (27.0-32.0); Mean Corpuscular Volume 93.2 fL (80-94); Mean Platelet Vol. 11.5 fl (6.2-12.0); Platelet Count 147 K/mm3 (150-450); RBC Distribution Width CV 13.7 % (11.6-14.6); RBC Distribution Width SD 45.1 fl (35.1-43.9); Red Blood Count 4.88 M/mm3 (4.6-6.2); White Blood Count 6.4 K/mm3 (4.4-11.0)
[2018-09-19 05:02] LABS: Scan Indicated on CBC? Y/N NO
[2018-09-19] MEDS: BENZOCAINE/MENTHOL 1 LOZENGE MUCOUS MEM (05:05)
[2018-09-19 05:09] LABS: ALB/GLOB Ratio 1.1 RATIO (0.9-2.4); AST(SGOT) 18 U/L (15-37); Alanine Aminotransfer ALT/SGPT 27 U/L (16-61); Albumin, Serum 3.5 g/dL (3.2-5.0); Alkaline Phosphatase 53 U/L (45-117); BUN 17 mg/dL (7-18); BUN/Creat Ratio 18.4 RATIO (10-20); Calcium,Total 8.5 mg/dL (8.5-10.1); Cholesterol 224 mg/dL (200); Creatinine, Serum 0.92 mg/dL (0.70-1.30); EST Glomerular Filtration Rate 89 mL/min (>60); Est Glom Filt Rate - Afr Amer 107 mL/min (>60); Globulin 3.1 g/dL (2.2-4.2); Glucose 114 mg/dL (74-106); Protein, Total 6.6 g/dL (6.4-8.2); Sodium Level 142 mmol/L (136-145); Triglycerides 234 mg/dL
[2018-09-19 05:10] LABS: Anion Gap 10 (5-15); Chloride 107 mmol/L (98-107); High Density Lipoprotein 56 mg/dL; Potassium 4.1 mmol/L (3.5-5.1); Very Low Density Lipoprotein 47 mg/dL (5-40)
--- NOTE | 2018-09-19 05:55 | EKG12_ITS ---
Test Reason : AM EKG Blood Pressure : / mmHG Vent. Rate : 064 BPM Atrial Rate : 064 BPM P-R Int : 166 ms QRS Dur : 098 ms QT Int : 436 ms P-R-T Axes : 020 055 126 degrees QTc Int : 449 ms Normal sinus rhythm ST & T wave abnormality, consider anterolateral ischemia Abnormal ECG When compared with ECG of 18-SEP-2018 11:56, MANUAL COMPARISON REQUIRED, DATA IS UNCONFIRMED Confirmed by DWAYNE WARNER, BRITNEY ([id number]), writer editor ASHKAN MATTA ([id number]) on 09/23/2018 5:29:42 PM Referred By: [facility]INE Confirmed By:BRITNEY RICE MD
--- NOTE | 2018-09-19 07:13 | PN.CARD_ITS ---
Subjectve: Patient seen and evaluated. Objective: Vital Signs Temp Pulse Resp BP Pulse Ox 98.5 F 58 L 17 119/76 96 09/19/18 04:00 09/19/18 07:00 09/19/18 07:00 09/19/18 07:00 09/19/18 07:00 Oxygen Delivery Method Room Air Weight: 232 lb 9.403 oz Body Mass Index (BMI) 29.9 Intake and Output for Last 24 Hours 09/17/18 09/18/18 09/19/18 23:59 23:59 23:59 Intake Total 840 / 840 1300 / 1300 Output Total 800 / 800 2049 Balance 40 / 40 -750 / -750 General: Awake, Alert, Oriented x 3 HEENT: PERRL, EOMI, Sclera Non Icteric Neck: Supple, Good ROM, No Lymph Node Enlargement Lungs: Clear to auscultation Cardiovascular: Regular Rhythm, Normal S1, Normal S2, No Murmurs, No Rubs, No Gallops Vascular: No Carotid Bruits, Normal Femoral Pulses, Normal Radial Pulses, Normal Dorsalis Pedal Pulse, Normal Posterior Tibial Pulses Abdomen: Bowel Sounds Present, Soft, Non Tender, No HSM, No Organomegaly Extremities: No Cyanosis, No Clubbing, No edema Neurological: No Focal Motor or Sensory Deficit 09/18/18 08:36: WBC 6.8, RBC 5.08, Hgb 15.5, Hct 47.8, MCV 94.1 H, MCH 30.5, MCHC 32.4, RDW 13.7, RDW Differential 46.9 H, Plt Count 165, MPV 11.8, Immature Gran % (Auto) 0.300, Neut % (Auto) 47.8, Lymph % (Auto) 42.0 H, [place] % (Auto) 8.3, Eos % (Auto) 1.5, Baso % (Auto) 0.1, Absolute Neuts (auto) 3.2, Total Counted Not Reportable 09/18/18 08:36: Sodium 141, Potassium 3.8, Chloride 105, Carbon Dioxide 29.0, Anion Gap 7, BUN 15, Creatinine 1.03, Est GFR (MDRD) Af Amer 95, Est GFR (MDRD) Non-Af 78, BUN/Creatinine Ratio 14.6, Glucose 104, Calcium 9.2, Troponin I 0.722 H* 09/18/18 13:06: Troponin I 1.160 H* 09/19/18 04:15: Sodium 142, Potassium 4.1, Chloride 107, Carbon Dioxide 25.0, Anion Gap 10, BUN 17, Creatinine 0.92, Est GFR (MDRD) Af Amer 107, Est GFR (MDRD) Non-Af 89, BUN/Creatinine Ratio 18.4, Glucose 114 H, Calcium 8.5, Total Bilirubin 0.70, Triglycerides 234 H, Cholesterol 224 H, LDL Cholesterol 121, VLDL Cholesterol 47 H, HDL Cholesterol 56 09/19/18 04:15: WBC 6.4, RBC 4.88, Hgb 14.9, Hct 45.5, MCV 93.2, MCH 30.5, MCHC 32.7, RDW 13.7, RDW Differential 45.1 H, Plt Count 147 L, MPV 11.5 Rhythm: EKG: ECHO: Stress Test: Cardiac Cath: PCI: CT Surgery: Holter monitor: EPS: PPM: CXR: Chest CT Scan: Medical Necessity - Tobacco Use Smoking Status: Former smoker Assessment/Plan 1. Non-ST elevation myocardial infarction * Patient presents with chest discomfort which is concerning for non-ST elevation myocardial infarction and progressive angina. * * * Cardiac cath showed: * Normal left main coronary artery * Left anterior descending artery with high-grade 95% proximal small calcified stenosis * Left circumflex artery with mild disease * Right coronary artery with mild diffuse disease * Preserved left ventricular systolic function * The patient underwent angioplasty and stenting of the left anterior descending artery. This morning is pain-free. He has evolutionary T wave changes anteriorly. * Plan will be for him to be discharged today to start cardiac rehabilitation. * Start high intensity statin.
[2018-09-19] MEDS: Aspirin E.C. 81 MG Tablet PO (08:41)
[2018-09-19] MEDS: TICAGRELOR 90 MG TABLET PO (08:41)
[2018-09-19] MEDS: Enoxaparin 40 MG/0.4 ML Syringe SC (08:42)
[2018-09-19] MEDS: Lisinopril 20 MG Tablet PO (08:49)
[2018-09-19] MEDS: Metoprolol(XL)Succ 25 MG Tablet PO (08:49)
[2018-09-19] MEDS: Acetaminophen 325 MG Tablet 650 MG PO (08:52)
--- NOTE | 2018-09-19 09:01 | DCINST_ITS ---
- Discharge Diagnoses Current Active Problems: Current Active and Chronic Problems (Last Updated 09/19/18 @ 08:40 by Mary Cotter) Non-ST elevation [place] (NSTEMI) (Acute 09/18/18) You will use the following diet at home:: Cardiac Your food should be the consistency of: Regular Discharge Activity: Return to Normal Activity Return to work on:: 09/23/18 Weight Bearing Status: Full weight bearing Call your doctor if you observe: Fever of 101 or Higher, Shortness of breath, Dizziness, Fainting spells, Chest pain, Increased palpitations (irregular heartbeat), Uncontrolled pain Instructions: Coronary Stents, Discharge Instructions for Heart Attack Allergies/Adverse Reactions: Allergies No Known Allergies Allergy (Verified 09/18/18 08:36) Medications to take at Discharge Aspirin E.C. [Ecotrin] 81 mg PO DAILY@0800 #90 tablet 09/19/18 Atorvastatin Calcium [Lipitor] 40 mg PO QHS #90 tablet 09/19/18 Lisinopril [Zestril] 20 mg PO DAILY #90 tablet 09/19/18 Metoprolol(XL)Succ [Toprol Xl (Beta Dexter)] 25 mg PO DAILY #90 tablet 09/19/18 Ticagrelor [Brilinta] 90 mg PO BID #90 tablet 09/19/18 The following prescriptions were given: Aspirin E.C. [Ecotrin] 81 mg PO DAILY@0800 #90 tablet Atorvastatin Calcium [Lipitor] 40 mg PO QHS #90 tablet Lisinopril [Zestril] 20 mg PO DAILY #90 tablet Metoprolol(XL)Succ [Toprol Xl (Beta Dexter)] 25 mg PO DAILY #90 tablet Ticagrelor [Brilinta] 90 mg PO BID #90 tablet Primary Care Physician: Anand Shaver MD [Primary Care Provider] - Please follow up with your Primary Care Physician in: 1 week. Test Results: Test results from this visit will be discussed in further detail at your follow- up appointment, if applicable. Please Follow Up With: Cliff Quinones MD When: please call his office.
--- NOTE | 2018-09-19 10:09 | CASEMGMT ---
As per initial credit resolution representative, pt has POA/LW, not on chart but will bring the forms in. FLORECITA Gaxiola, STEWARD DISHWASHER
--- NOTE | 2018-09-19 12:02 | PCM.DC.SUM ---
Discharge Date and Diagnosis Date of Admission: 09/18/18 Date of Discharge: 09/19/18 - Primary Discharge Diagnosis Acute non-ST elevation [place] status post PTCA/ALECIA to proximal LAD. - Secondary Discharge Diagnosis Chronic Problems (Last Updated 09/19/18 @ 08:40 by Mary Cotter) Hyperlipidemia (Chronic) Hospital Course and Treatment Imaging Results: Clinical Impression(s) from Imaging Studies Chest X-Ray 09/18/18 08:39 IMPRESSION: Normal x-ray examination of the chest. Electronically Signed: Guilherme EastonDO nathan at 9:23 EST Tel , Service support , Dr. Quinones, Dr. Yepez, cardiology. Operations: None Procedures: Cardiac catheterization, EKG Summary of Care Provided: Patient seen and examined on the day of discharge and appeared to be stable to be discharged home. He denied any more chest pain or shortness of breath. His vitals are stable. The patient is a 58 year old M presented to the emergency because of chest pain and he was found to have EKG changes included T wave inversion in lateral chest leads but there was no evidence of acute ST elevation. His troponin was elevated upon admission and it was 0.722. His chest x-ray showed no acute findings. His routine blood work was unremarkable. He underwent emergent cardiac catheterization, found to have high-grade 95% stenosis of the proximal LAD status post PTCA/ALECIA. He was treated with aspirin, statins, Brilinta, Coreg and lisinopril. Patient did very well, his vital signs remained stable and the symptoms resolved. His routine blood work on the day of discharge was unremarkable. Lipid profile revealed triglycerides of 234, total cholesterol of 224, LDL cholesterol of 121 and HDL cholesterol of 56. Patient discharged home in a stable medical condition, discharged on aspirin, Brilinta, statins, Coreg and lisinopril, recommended follow-up with PCP in 1 week and follow-up with cardiology according to Dr. Quinones. - Physical Exam General: Alert, Oriented x3, Cooperative, No apparent distress HEENT: Atraumatic, PERRLA, EOMI, Normocephalic Oral: Moist Mucosa, No Gingival or Mucosal Lesions/ Ulcerations Neck: Supple, No JVD, Negative Carotid Bruits, Trachea Midline, Thyroid Normal Size and Texture Lungs: Clear to auscultation, Normal air movement, No rhonchi, No wheeze, No rales Cardiovascular: Regular rate, Regular Rhythm, Normal S1, Normal S2, No murmurs Abdomen: Bowel Sounds Present, Soft, Non Tender, Non-Distended, No Hepato-splenomegaly Extremities: No clubbing, No cyanosis, No edema Skin: No rashes, No breakdown Lymphatic: No Cervical, Supraclavicular, or Inguinal Adenopathy Neurological: Cranial nerves II-XII grossly intact, Motor Exam 5/5 strength throughout Psych/Mental Status: Normal Affect, Appropriate Vital Signs Temp Pulse Resp BP Pulse Ox 98.2 F 87 17 116/67 98 09/19/18 09:00 09/19/18 09:00 09/19/18 09:00 09/19/18 09:00 09/19/18 09:00 Oxygen Delivery Method Room Air Weight: 232 lb 9.403 oz Body Mass Index (BMI) 29.9 Intake and Output for Last 24 Hours 09/17/18 09/18/18 09/19/18 23:59 23:59 23:59 Intake Total 840 / 840 1300 / 1300 Output Total 800 / 800 2049 / 0 Balance 40 / 40 -750 / -750 Laboratory Tests Past 24 Hrs 09/18/18 09/19/18 09/19/18 13:06 04:15 04:15 WBC 6.4 RBC 4.88 Hgb 14.9 Hct 45.5 MCV 93.2 MCH 30.5 MCHC 32.7 RDW 13.7 RDW Differential 45.1 H Plt Count 147 L MPV 11.5 Sodium 142 Potassium 4.1 Chloride 107 Carbon Dioxide 25.0 Anion Gap 10 BUN 17 Creatinine 0.92 Estim Creat Clear Calc 96.50 Est GFR (MDRD) Af Amer 107 Est GFR (MDRD) Non-Af 89 BUN/Creatinine Ratio 18.4 Glucose 114 H Calcium 8.5 Total Bilirubin 0.70 AST 18 ALT 27 Alkaline Phosphatase 53 Troponin I 1.160 H* Total Protein 6.6 Albumin 3.5 Globulin 3.1 Albumin/Globulin Ratio 1.1 Triglycerides 234 H Cholesterol 224 H LDL Cholesterol 121 VLDL Cholesterol 47 H HDL Cholesterol 56 Discharge Activity: Return to Normal Activity Return to work on:: 09/23/18 Weight Bearing Status: Full weight bearing Call your doctor if you observe: Fever of 101 or Higher, Shortness of breath, Dizziness, Fainting spells, Chest pain, Increased palpitations (irregular heartbeat), Uncontrolled pain Home Medications: Medications to take at Discharge Aspirin E.C. [Ecotrin] 81 mg PO DAILY@0800 #90 tablet 09/19/18 Atorvastatin Calcium [Lipitor] 40 mg PO QHS #90 tablet 09/19/18 Lisinopril [Zestril] 20 mg PO DAILY #90 tablet 09/19/18 Metoprolol(XL)Succ [Toprol Xl (Beta Dexter)] 25 mg PO DAILY #90 tablet 09/19/18 Ticagrelor [Brilinta] 90 mg PO BID #90 tablet 09/19/18 Following Prescrptions Were Given to Patient: Aspirin E.C. [Ecotrin] 81 mg PO DAILY@0800 #90 tablet Atorvastatin Calcium [Lipitor] 40 mg PO QHS #90 tablet Lisinopril [Zestril] 20 mg PO DAILY #90 tablet Metoprolol(XL)Succ [Toprol Xl (Beta Dexter)] 25 mg PO DAILY #90 tablet Ticagrelor [Brilinta] 90 mg PO BID #90 tablet Primary Care Physician: Anand Shaver MD [Primary Care Provider] - Please follow up with your Primary Care Physician in: 1 week. Please Follow Up With: Cliff Quinones MD When: please call his office. Patient Instructions: Coronary Stents, Discharge Instructions for Heart Attack Disposition: Home Minutes spent on discharge:: 32 Patient Condition:: Stable Medical Necessity - Tobacco Use Smoking Status: Former smoker Meaningful Use Info Meaningful Use Diagnoses (Choose all that apply): AMI - AMI Aspirin given w/in 24hrs of arrival?: Yes ASA at discharge?: Yes Statins at discharge?: Yes Sergio/ARB at discharge?: Yes Beta Dexter at discharge?: Yes Done w/ Acute VA measure.: Yes Code Visit Inpatient E&M: 67935 Disch Hosp
--- NOTE | 2018-09-19 12:09 | DS.PCM_ITS ---
Discharge Date and Diagnosis Date of Admission: 09/18/18 Date of Discharge: 09/19/18 - Primary Discharge Diagnosis Acute non-ST elevation [place] status post PTCA/ALECIA to proximal LAD. - Secondary Discharge Diagnosis Chronic Problems (Last Updated 09/19/18 @ 08:40 by Mary Cotter) Hyperlipidemia (Chronic) Hospital Course and Treatment Imaging Results: Clinical Impression(s) from Imaging Studies Chest X-Ray 09/18/18 08:39 IMPRESSION: Normal x-ray examination of the chest. Electronically Signed: Guilherme EastonDO nathan at 9:23 EST Tel , Service support , Dr. Quinones, Dr. Yepez, cardiology. Operations: None Procedures: Cardiac catheterization, EKG Summary of Care Provided: Patient seen and examined on the day of discharge and appeared to be stable to be discharged home. He denied any more chest pain or shortness of breath. His vitals are stable. The patient is a 58 year old M presented to the emergency because of chest pain and he was found to have EKG changes included T wave inversion in lateral chest leads but there was no evidence of acute ST elevation. His troponin was elevated upon admission and it was 0.722. His chest x-ray showed no acute findings. His routine blood work was unremarkable. He underwent emergent cardiac catheterization, found to have high-grade 95% stenosis of the proximal LAD status post PTCA/ALECIA. He was treated with aspirin, statins, Brilinta, Coreg and lisinopril. Patient did very well, his vital signs remained stable and the symptoms resolved. His routine blood work on the day of discharge was unremarkable. Lipid profile revealed triglycerides of 234, total cholesterol of 224, LDL cholesterol of 121 and HDL cholesterol of 56. Patient discharged home in a stable medical condition, discharged on aspirin, Brilinta, statins, Coreg and lisinopril, recommended follow-up with PCP in 1 week and follow-up with cardiology according to Dr. Quinones. - Physical Exam General: Alert, Oriented x3, Cooperative, No apparent distress HEENT: Atraumatic, PERRLA, EOMI, Normocephalic Oral: Moist Mucosa, No Gingival or Mucosal Lesions/ Ulcerations Neck: Supple, No JVD, Negative Carotid Bruits, Trachea Midline, Thyroid Normal Size and Texture Lungs: Clear to auscultation, Normal air movement, No rhonchi, No wheeze, No rales Cardiovascular: Regular rate, Regular Rhythm, Normal S1, Normal S2, No murmurs Abdomen: Bowel Sounds Present, Soft, Non Tender, Non-Distended, No Hepato- splenomegaly Extremities: No clubbing, No cyanosis, No edema Skin: No rashes, No breakdown Lymphatic: No Cervical, Supraclavicular, or Inguinal Adenopathy Neurological: Cranial nerves II-XII grossly intact, Motor Exam 5/5 strength throughout Psych/Mental Status: Normal Affect, Appropriate Vital Signs Temp Pulse Resp BP Pulse Ox 98.2 F 87 17 116/67 98 09/19/18 09:00 09/19/18 09:00 09/19/18 09:00 09/19/18 09:00 09/19/18 09:00 Oxygen Delivery Method Room Air Weight: 232 lb 9.403 oz Body Mass Index (BMI) 29.9 Intake and Output for Last 24 Hours 09/17/18 09/18/18 09/19/18 23:59 23:59 23:59 Intake Total 840 / 840 1300 / 1300 Output Total 800 / 800 2049 / 0 Balance 40 / 40 -750 / -750 Laboratory Tests Past 24 Hrs 09/18/18 09/19/18 09/19/18 13:06 04:15 04:15 WBC 6.4 RBC 4.88 Hgb 14.9 Hct 45.5 MCV 93.2 MCH 30.5 MCHC 32.7 RDW 13.7 RDW Differential 45.1 H Plt Count 147 L MPV 11.5 Sodium 142 Potassium 4.1 Chloride 107 Carbon Dioxide 25.0 Anion Gap 10 BUN 17 Creatinine 0.92 Estim Creat Clear Calc 96.50 Est GFR (MDRD) Af Amer 107 Est GFR (MDRD) Non-Af 89 BUN/Creatinine Ratio 18.4 Glucose 114 H Calcium 8.5 Total Bilirubin 0.70 AST 18 ALT 27 Alkaline Phosphatase 53 Troponin I 1.160 H* Total Protein 6.6 Albumin 3.5 Globulin 3.1 Albumin/Globulin Ratio 1.1 Triglycerides 234 H Cholesterol 224 H LDL Cholesterol 121 VLDL Cholesterol 47 H HDL Cholesterol 56 Discharge Activity: Return to Normal Activity Return to work on:: 09/23/18 Weight Bearing Status: Full weight bearing Call your doctor if you observe: Fever of 101 or Higher, Shortness of breath, Dizziness, Fainting spells, Chest pain, Increased palpitations (irregular heartbeat), Uncontrolled pain Home Medications: Medications to take at Discharge Aspirin E.C. [Ecotrin] 81 mg PO DAILY@0800 #90 tablet 09/19/18 Atorvastatin Calcium [Lipitor] 40 mg PO QHS #90 tablet 09/19/18 Lisinopril [Zestril] 20 mg PO DAILY #90 tablet 09/19/18 Metoprolol(XL)Succ [Toprol Xl (Beta Dexter)] 25 mg PO DAILY #90 tablet 09/19/18 Ticagrelor [Brilinta] 90 mg PO BID #90 tablet 09/19/18 Following Prescrptions Were Given to Patient: Aspirin E.C. [Ecotrin] 81 mg PO DAILY@0800 #90 tablet Atorvastatin Calcium [Lipitor] 40 mg PO QHS #90 tablet Lisinopril [Zestril] 20 mg PO DAILY #90 tablet Metoprolol(XL)Succ [Toprol Xl (Beta Dexter)] 25 mg PO DAILY #90 tablet Ticagrelor [Brilinta] 90 mg PO BID #90 tablet Primary Care Physician: Anand Shaver MD [Primary Care Provider] - Please follow up with your Primary Care Physician in: 1 week. Please Follow Up With: Cliff Quinones MD When: please call his office. Patient Instructions: Coronary Stents, Discharge Instructions for Heart Attack Disposition: Home Minutes spent on discharge:: 32 Patient Condition:: Stable Medical Necessity - Tobacco Use Smoking Status: Former smoker Meaningful Use Info Meaningful Use Diagnoses (Choose all that apply): AMI - AMI Aspirin given w/in 24hrs of arrival?: Yes ASA at discharge?: Yes Statins at discharge?: Yes Sergio/ARB at discharge?: Yes Beta Dexter at discharge?: Yes Done w/ Acute PA measure.: Yes Code Visit Inpatient E&M: 62164 Disch Hosp
== END 2018-09-19 11:06 | disposition home or self-care (01) | DRG 247 ==
LOC: ED 09:21 → PCU 09:32 → ICU 09-19 08:10
PROVIDERS: Internal Medicine Cardiovascular Disease; Admitting Provider Hospitalist; Emergency Provider Emergency Medicine; Family Provider Internal Medicine; PCP Internal Medicine; Visit Provider Hospitalist
DX: I21.4 Non-ST elevation (NSTEMI) myocardial infarction (principal); Z87.891 Personal history of nicotine dependence; E78.5 Hyperlipidemia, unspecified; I25.110 Atherosclerotic heart disease of native coronary artery with unstable angina pectoris
CPT/HCPCS: 71045; 80048; 80053; 80061; 84484; 85025; 85027; 85347; 92928; 93005; 93458; 99152; 99153; 99283; J7030; J7040; Q9967; A4216; C1725; C1769; C1874; C1887; C1894; C9600

== ENCOUNTER → 2018-10-03 11:53 | Outpatient (CLI) | payer BC, SELFPAY ==
[2018-09-18 14:25] VITALS: BMI 30.7
[2018-09-26 14:24] VITALS: BMI 29.5
--- NOTE | 2018-10-03 12:39 | PCM.CR.HP2 ---
CR - History & Physical - General Arrival date:: 10/03/18 Arrival time:: 12:39 Date of Referral:: 10/03/18 Date of CR Evaluation:: 10/03/18 Referring Physician: Dr. Regan Quinones Primary Diagnosis: PCI with stent 09/18/18 - History of Present Cardiac Event Onset Date: Enter Onset Date of cardiac illnesses in Comment field below Current stable Angina Pectoris:: No Acute Myocardial Infarction within 12 months:: No Coronary Artery Bypass Graft:: No Heart valve replacement or repair:: No PTCA or coronary stenting:: Yes - 09/18/18 Heart or Heart-Lung Transplant:: No Heart Failure EF <35%:: No Type of Symptoms:: Chest pain and burning Interventions with present event:: heart cath Were there any complications?: no - Medications Home Medications: Ambulatory Orders Medication Instructions Recorded Aspirin E.C. [Ecotrin] 81 mg PO DAILY@0800 #90 tab 09/19/18 Ticagrelor [Brilinta] 90 mg PO BID #90 tab 09/19/18 atorvastatin 40 mg tablet 40 mg PO QHS #90 tab 09/26/18 clopidogrel 75 mg tablet 75 mg PO DAILY #90 tab 09/26/18 lisinopril 20 mg tablet 20 mg PO DAILY #90 tab 09/26/18 metoprolol succinate ER 25 mg 25 mg PO DAILY #90 tab 09/26/18 tablet,extended release 24 hr - Allergies Allergies/Adverse Reactions: Allergies No Known Allergies Allergy (Verified 09/26/18 14:23) - Sleep Disorder Evaluation Hx of Sleep Apnea: No Do you snore loudly (louder than talking or can be heard through closed doors)?: Yes Do you often feel tired/ fatigued/ sleepy during daytime?: Yes Has anyone observed you stop breathing during sleep?: Yes History of Hypertension (for STOP score): No STOP Results: Positive Advanced Directives - Advanced Directives Power of Hydraulic Press Operator: Yes Living Will: Yes Advance Directives Information Provided: Yes Advance Directives on File: No DNR Order?:: No Past Medical History - Past Medical Illness Medical History: Past Medical History (Last Updated 09/19/18 @ 08:40 by Mary Cotter) Hyperlipidemia (Chronic) E78.5 Atherosclerosis of coronary artery of [place] heart without angina pectoris (Acute) I25.10 PCI-ALECIA Prox LAD w/ 3.0 x 38 mm Resolute Integrity 09/18/18 Non-ST elevation [place] (NSTEMI) (Acute) Onset Date: 09/18/18 I21.4 - Past Surgical History Surgical History: Past Surgical History (Last Updated 09/19/18 @ 08:39 by Mary Cotter) History of coronary artery stent placement (Resolved) Onset Date: 09/18/18 Z95.5 PCI-ALECIA Prox LAD w/ 3.0 x 38 mm Resolute Integrity 09/18/18 Surgical History: appendectomy, herniorrhaphy Social History - Smoking History Smoking Status: Former smoker - college Years Smokin Packs Smoked per Day: 0.5 Hx Smoking Cessation Date: 1979 Hx Tobacco Use: Yes - quit 1979 Hx Smoking Exposure: No - Alcohol Use Alcohol Usage: Yes - wine 2 daily - Substance Abuse Hx Substance Use: No - Occupation Occupation (List type of work in comments):: Employed Hours worked per day:: 40 Returned to work on:: 09/30/18 - Hobbies, Recreation, Social Activities Hobbies: Woodworking, Exercise Recreational Activities: I am able to engage in all my recreational activities Social Environment - Status Marital Status: - Current Living Arrangements Living Environment:: Spouse - Children How many children do you have?: 2 Do any of your children live nearby?: No - Safety Do you feel safe in your surroundings?: Yes - Assistance Do you need any assistance at home?: no Review of Systems - Review of Systems Hints: Right click = Denies (Slash). Left click = Reports ([place]) Review of Present Symptoms: Reports: Shortness of Breath with Exertion - some with Brilinta, will switch to Plavix at end of month, Fatigue, Appetite - Normal, Appetite - Special Diet - cardiac diet, Sleep - Normal - some sleep apnea noted in hospital. Denies: Shortness of Breath at Rest, PVD, Operative Discomfort, Angina, Wound Healing, Dizziness/Lightheadedness, Heart Arrhythmia/Irregularities, Sexual Changes - Pain Is Patient Pain Free?: Yes Risk Factor Assessment - Vital Signs Pulse Ox: 97 - Pulse Pulse Rate: 50 Pulse Rhythm: Regular - Hypertension Blood Pressure Sitting - Right Arm: 124/80 Blood Pressure Sitting - Left Arm: 110/70 - Stress Stress: Work-related - Blood Cholesterol/Lipids Total Cholesterol (mg/dL) Goal = less than 200 mg/dL: 224 HDL Cholesterol (mg/dL) Goal = less than 40 mg/dL: 56 LDL Cholesterol (mg/dL) Goal = less than 70 mg/dL: 121 Triglycerides (mg/dL) Goal = less than 150 mg/dL: 234 - Obesity Height: 6 ft 1 in Weight:: 218 lb Weight in Pounds: 218.0 lbs Body Mass Index (BMI): 28.8 Desired Body Weight: 200 Realistic Weight Goal (Loss of 1-2 lbs/week): 200 Nutritional Referral for Obesity: Yes - Risk Stratification Risk Guidelines: Lowest Risk: Risk Factor for Smoking, Risk Factor for Diabetes, Risk Factor for Hypertension, Risk Factor for Sedentary Lifestyle, Risk Factor for Depression, Moderate Risk: Risk Factor for Dyslipidemia, Risk Factor for Obesity - For Smoking Smoking Risk Guidelines: Smoking Low Risk: None or quit greater than 6 months ago. Smoking Moderate Risk: Smoker or quit 6 months or less ago. Smoking High Risk: Smoker - For Dyslipidemia Dyslipidemia Risk Guidelines: Low Risk: Moderate Risk: High Risk: 15-25% fat 25.1-29% fat >/= 30% fat. <7% sat fat 7-9% sat fat >9% sat fat. <150 mg chol 150-299 mg chol >/= 300 mg chol. LDL <100 LDL 100-129 LDL >/= 130. Chol/HDL ratio <5.0 Chol/HDL ratio 5.0-6.0 Chol/HDL ratio >6.0. Triglycerides <100 Triglycerides 100-149 Triglycerides >/= 150 - For Diabetes Mellitus Diabetes Risk Guidelines: Diabetes Low Risk: HgA1c <6.5% and/or FBG <120. Diabetes Moderate Risk: HgA1c 6.6-7.9% and/or FBG 120-180. Diabetes High Risk: HgA1c >/= 8% and/or FBG >180 - For Obesity/Overweight Obesity/Overweight Risk Guidelines: Obesity Low Risk: BMI <25.0. Obesity Moderate Risk: BMI 25-29.9. Obesity High Risk: BMI >/= 30.0 - For Hypertension Hypertension Risk Guidelines: Hypertension Low Risk: Systolic <120 and Diastolic <80. Hypertension Moderate Risk: Systolic 120-139 and Diastolic 80-89. Hypertension High Risk: Systolic >/= 140 and Diastolic >/= 90 - For Sedentary Lifestyle Sedentary Lifestyle Risk Guidelines: Sedentary Lifestyle Low Risk: >/= 1,500 kcal/week. Sedentary Lifestyle Moderate Risk: 700-1,499 kcal/week. Sedentary Lifestyle High Risk: < 700 kcal/week - For Depression Depression Risk Guidelines: Depression Low Risk: Not clinically depressed. Depression Moderate Risk: Mildly depressed. Depression High Risk: Clinically depressed Motivation - Motivation to Participate On a scale of 1 to 10, how prepared are you to commit to attending program?: 8
--- NOTE | 2018-10-03 12:43 | CR.HP_ITS ---
CR - History & Physical - General Arrival date:: 10/03/18 Arrival time:: 12:39 Date of Referral:: 10/03/18 Date of CR Evaluation:: 10/03/18 Referring Physician: Dr. Regan Quinones Primary Diagnosis: PCI with stent 09/18/18 - History of Present Cardiac Event Onset Date: Enter Onset Date of cardiac illnesses in Comment field below Current stable Angina Pectoris:: No Acute Myocardial Infarction within 12 months:: No Coronary Artery Bypass Graft:: No Heart valve replacement or repair:: No PTCA or coronary stenting:: Yes - 09/18/18 Heart or Heart-Lung Transplant:: No Heart Failure EF <35%:: No Type of Symptoms:: Chest pain and burning Interventions with present event:: heart cath Were there any complications?: no - Medications Home Medications: Ambulatory Orders Medication Instructions Recorded Aspirin E.C. [Ecotrin] 81 mg PO DAILY@0800 #90 tab 09/19/18 Ticagrelor [Brilinta] 90 mg PO BID #90 tab 09/19/18 atorvastatin 40 mg tablet 40 mg PO QHS #90 tab 09/26/18 clopidogrel 75 mg tablet 75 mg PO DAILY #90 tab 09/26/18 lisinopril 20 mg tablet 20 mg PO DAILY #90 tab 09/26/18 metoprolol succinate ER 25 mg 25 mg PO DAILY #90 tab 09/26/18 tablet,extended release 24 hr - Allergies Allergies/Adverse Reactions: Allergies No Known Allergies Allergy (Verified 09/26/18 14:23) - Sleep Disorder Evaluation Hx of Sleep Apnea: No Do you snore loudly (louder than talking or can be heard through closed doors)?: Yes Do you often feel tired/ fatigued/ sleepy during daytime?: Yes Has anyone observed you stop breathing during sleep?: Yes History of Hypertension (for STOP score): No STOP Results: Positive Advanced Directives - Advanced Directives Power of Momd Teacher: Yes Living Will: Yes Advance Directives Information Provided: Yes Advance Directives on File: No DNR Order?:: No Past Medical History - Past Medical Illness Medical History: Past Medical History (Last Updated 09/19/18 @ 08:40 by Mary Cotter) Hyperlipidemia (Chronic) E78.5 Atherosclerosis of coronary artery of [place] heart without angina pectoris (Acute) I25.10 PCI-ALECIA Prox LAD w/ 3.0 x 38 mm Resolute Integrity 09/18/18 Non-ST elevation OK (NSTEMI) (Acute) Onset Date: 09/18/18 I21.4 - Past Surgical History Surgical History: Past Surgical History (Last Updated 09/19/18 @ 08:39 by Mary Cotter) History of coronary artery stent placement (Resolved) Onset Date: 09/18/18 Z95.5 PCI-ALECIA Prox LAD w/ 3.0 x 38 mm Resolute Integrity 09/18/18 Surgical History: appendectomy, herniorrhaphy Social History - Smoking History Smoking Status: Former smoker - college Years Smokin Packs Smoked per Day: 0.5 Hx Smoking Cessation Date: 1979 Hx Tobacco Use: Yes - quit 1979 Hx Smoking Exposure: No - Alcohol Use Alcohol Usage: Yes - wine 2 daily - Substance Abuse Hx Substance Use: No - Occupation Occupation (List type of work in comments):: Employed Hours worked per day:: 40 Returned to work on:: 09/30/18 - Hobbies, Recreation, Social Activities Hobbies: Woodworking, Exercise Recreational Activities: I am able to engage in all my recreational activities Social Environment - Status Marital Status: - Current Living Arrangements Living Environment:: Spouse - Children How many children do you have?: 2 Do any of your children live nearby?: No - Safety Do you feel safe in your surroundings?: Yes - Assistance Do you need any assistance at home?: no Review of Systems - Review of Systems Hints: Right click = Denies (Slash). Left click = Reports (Waterfall) Review of Present Symptoms: Reports: Shortness of Breath with Exertion - some with Brilinta, will switch to Plavix at end of month, Fatigue, Appetite - Normal, Appetite - Special Diet - cardiac diet, Sleep - Normal - some sleep apnea noted in hospital. Denies: Shortness of Breath at Rest, PVD, Operative Discomfort, Angina, Wound Healing, Dizziness/Lightheadedness, Heart Arrhythmia/Irregularities, Sexual Changes - Pain Is Patient Pain Free?: Yes Risk Factor Assessment - Vital Signs Pulse Ox: 97 - Pulse Pulse Rate: 50 Pulse Rhythm: Regular - Hypertension Blood Pressure Sitting - Right Arm: 124/80 Blood Pressure Sitting - Left Arm: 110/70 - Stress Stress: Work-related - Blood Cholesterol/Lipids Total Cholesterol (mg/dL) Goal = less than 200 mg/dL: 224 HDL Cholesterol (mg/dL) Goal = less than 40 mg/dL: 56 LDL Cholesterol (mg/dL) Goal = less than 70 mg/dL: 121 Triglycerides (mg/dL) Goal = less than 150 mg/dL: 234 - Obesity Height: 6 ft 1 in Weight:: 218 lb Weight in Pounds: 218.0 lbs Body Mass Index (BMI): 28.8 Desired Body Weight: 200 Realistic Weight Goal (Loss of 1-2 lbs/week): 200 Nutritional Referral for Obesity: Yes - Risk Stratification Risk Guidelines: Lowest Risk: Risk Factor for Smoking, Risk Factor for Diabetes, Risk Factor for Hypertension, Risk Factor for Sedentary Lifestyle, Risk Factor for Depression, Moderate Risk: Risk Factor for Dyslipidemia, Risk Factor for Obesity - For Smoking Smoking Risk Guidelines: Smoking Low Risk: None or quit greater than 6 months ago. Smoking Moderate Risk: Smoker or quit 6 months or less ago. Smoking High Risk: Smoker - For Dyslipidemia Dyslipidemia Risk Guidelines: Low Risk: Moderate Risk: High Risk: 15-25% fat 25.1-29% fat >/= 30% fat. <7% sat fat 7-9% sat fat >9% sat fat. <150 mg chol 150-299 mg chol >/= 300 mg chol. LDL <100 LDL 100-129 LDL >/= 130. Chol/HDL ratio <5.0 Chol/HDL ratio 5.0-6.0 Chol/HDL ratio >6.0. Triglycerides <100 Triglycerides 100- 149 Triglycerides >/= 150 - For Diabetes Mellitus Diabetes Risk Guidelines: Diabetes Low Risk: HgA1c <6.5% and/or FBG <120. Diabetes Moderate Risk: HgA1c 6.6-7.9% and/or FBG 120-180. Diabetes High Risk: HgA1c >/= 8% and/or FBG >180 - For Obesity/Overweight Obesity/Overweight Risk Guidelines: Obesity Low Risk: BMI <25.0. Obesity Moderate Risk: BMI 25-29.9. Obesity High Risk: BMI >/= 30.0 - For Hypertension Hypertension Risk Guidelines: Hypertension Low Risk: Systolic <120 and Diastolic <80. Hypertension Moderate Risk: Systolic 120-139 and Diastolic 80-89. Hypertension High Risk: Systolic >/= 140 and Diastolic >/= 90 - For Sedentary Lifestyle Sedentary Lifestyle Risk Guidelines: Sedentary Lifestyle Low Risk: >/= 1,500 kcal/week. Sedentary Lifestyle Moderate Risk: 700-1,499 kcal/week. Sedentary Lifestyle High Risk: < 700 kcal/week - For Depression Depression Risk Guidelines: Depression Low Risk: Not clinically d epressed. Depression Moderate Risk: Mildly depressed. Depression High Risk: Clinically depressed Motivation - Motivation to Participate On a scale of 1 to 10, how prepared are you to commit to attending program?: 8
[2018-10-03 13:06] VITALS: BP 110/70; BP 124/80; PULSE 50; O2SAT 97; BMI 28.8
--- NOTE | 2018-10-03 13:24 | PCM.CR.ITP ---
General Information - General Information Admitting Diagnosis: NSTEMI, PCI W/CORONARY STENTING - Education/Goals Barriers to Learning: None Individual Counseling: Initial Assessment: Abnormal Cholesterol Levels, High Blood Pressure, Overweight/Obesity Cardiac Rehabilitation Goals: 1. Maintain the individual as the primary focus of care. 2. To improve the patient's quality of life. 3. Identification of cardiac risk factors and provide cardiac risk factor management. 4. Enhance the psychosocial status of the patient. 5. Reconditioning enough to allow the patient to resume customary activities. 6. Control symptoms of cardiac disease Scale for measuring improvement of personal goals: Enter appropriate number in Comments. 2 = Unchanged. 3 = Slightly Better. 4 = Moderate Improvement. 5 = Met my Goal Personal Goals: Initial Assessment: Improve management of stress and emotions, Improve energy level, Participate in home exercise program, Improve knowledge of cardiac disease, Improve muscle strength and endurance, Control risk factors (learn risk factor modification) Exercise - Initial Assessment - Visit Date of Eval: 10/03/18 Session #:: 0 - START 10/07/2018 - Stages of Change Stages of Change:: Action - Physician Prescribed Exercise Modalities: Treadmill, Rower, Airdyne Frequency (days/week): 3x/week for 12 weeks [36 sessions] Duration (Minutes):: 30-45 Intensity: 60-80% age predicted maximum heart rate reserve METs - Progression: 0.5-1.0 MET, RPE 11-14 WEEK: 2.5 Target Heart Rate:: 96-112 - Hypertension Do any of the following apply?: Medication Resting Blood Pressure:: 119/80 - Intervention Home Exercise/Activity Goal:: Moderate Exercise 30 min/day x 5 days/wk - Education Goals:: Warm-up, RPE DAVID Scale, S/S, Safe Exercise, Self-Monitoring - Exercise Program Goals Exercise Program Goals: Aerobic Activity >30 min Nutrition - Initial Assessment - Program Goals Nutrition Program Goals: LDL <70. Total Cholesterol <200. HDL >45. Triglycerides <150. HgbA1C <7%. BMI <25 - Visit Date of Assessment:: 10/03/18 - Stages of Change Stages of Change:: Action - Lipids Total Cholesterol (mg/dL) Goal = less than 200 mg/dL: 224 HDL Cholesterol (mg/dL) Goal = less than 45 mg/dL: 56 LDL Cholesterol (mg/dL) Goal = less than 70 mg/dL: 121 Triglycerides (mg/dL) Goal = less than 150 mg/dL: 234 - Diabetes Diabetes:: No Insulin: No Non-Insulin Dependent?: No Do you monitor your blood sugar at home?: No - Weight Management Height: 6 ft 1 in Weight:: 218 lb Body Fat %:: 30.7 - Intervention Referral to dietitian:: Yes - WHY WEIGHT PROGRAM Referral to Diabetic Clinic:: No Will attend diet classes:: Yes - Education Gave educational materials for:: Healthy eating Tobacco - Initial Assessment - Program Goals Tobacco Program Goals: Complete smoking cessation. Attend education classes. Improve Knowledge Test score - Stage of Change Stages of Change:: Action - Learning Barriers Learning Barriers: Ready to Learn - Family Support Do you have family support?: Yes - Tobacco Use How long ago did you quit using tobacco products?: Less than 6 months ago Do you use smokeless tobacco?: No - Intervention Smoking Cessation Referral:: No Education Schedule Given:: Yes - Education Gave educational material for:: Coronary artery disease, Risk factors, Sexuality, Medical compliance, Cardiac A&P, Angina signs & symptoms Psychosocial - Initial Assess - Target Goals Target Goals: Assess presence or absence of depression. Using a valid screening tool, maximizes coping skills. Positive support system - Stages of Change Stages of Change:: Action - Psychosocial Test Tool Used:: HANDS Depression Questionnaire - Intervention PS - Interventions: Yes Attend Stress Management Classes, No Referral to Mental Health, No Referral to [facility] Case Management, No Referral to Physician, No Uses Stress Management Skills - Education Gave educational materials for:: Coping techniques, Signs & symptoms of depression, Stress management, Relaxation techniques - Patient/Program Goal Preventative Medication(s):: Aspirin, Clopidogrel, Beta deja, Statin/lipid - Assistive Devices Assistive Devices:: None Fall Risk Assessed:: Yes Patient Health Questionnaire Initial Assessment 1. Little interest or pleasure in doing things: Not at all 2. Feeling down, depressed, or hopeless: Not at all 3. Trouble falling or staying asleep, or sleeping too much: Several days 4. Feeling tired or having little energy: Several days 5. Poor appetite or overeating: Not at all 6. Feeling bad about yourself -- or that you are a failure or have let yourself or your family down: Not at all 7. Trouble concentrating on things, such as reading the newspaper or watching television: Not at all 8. Moving or speaking so slowly that other people could have noticed. Or the opposite - being so fidgety or restless that you have been moving around a lot more than usual: Not at all 9. Thoughts that you would be better off , or of hurting yourself in some way: Not at all How difficult have these problems made it for you to do your work, take care of things at home, or get along with other people?: Not difficult at all Total Score: 2 LANE-Q SV Test - Statements CAD is a disease of the arteries in the heart: False Examples of risk factors for heart disease: True Angina is chest pain or discomfort: True The benefits of resistance training include: True Eating more meat and dairy products: False Anti-platelet medications such as aspirin are important: True The only effective way to manage stress: False An exercise warm-up slowly increases heart rate: True Prepared, processed foods usually have high sodium: True Depression is common after a heart attack: True The statin medications lower cholesterol: True To control blood pressure, lower the amount of sodium: True If someone gets chest discomfort during walking: False Transfats are partially hydrogenated vegetable oils: True Sleep apnea that is not treated increases the risk: False To control cholesterol, one should become a vegetarian: False Someone knows if he/she is exercising at the right level: True Diabetes cannot be prevented with exercise & health eating: False Stress is a large risk for heart attack: True A diet that can help lower blood pressure is rich in: True - Total Score Total Correct Responses: 20 Self-Efficacy Initial Assessment We would like to know how confident you are in doing certain activities. Please select your confidence level for:: Select your confidence level for the following using the scale 1-10 where 1 is not at all confident and 10 is totally confident. Your score is the average of all 6 responses. Fatigue: How confident are you that you can keep the fatigue caused by your disease from interfering with the things you want to do? Select Number: 8 Physical Discomfort or Pain: How confident are you that you can keep the physical discomfort or pain of your disease from interfering with the things you want to do? Select Number: 8 Emotional Distress: How confident are you that you can keep the emotional distress caused by your disease from interfering with the things you want to do? Select Number: 8 Other Symptoms or Health Problems: How confident are you that you can keep other symptoms or health problems from interfering with the things you want to do? Select Number: 8 Different Tasks and Activities: How confident are you that you can do the different tasks and activities needed to manage your health condition so as to reduce your need to see a doctor? Select Number: 10 Medication: How confident are you that you can do things other than just taking medication to reduce how much your illness affects your everyday life? Select Number: 10 Total Score:: 8 Nutrition Survey - Nutrition Survey Instructions Scoring Instructions: Scoring is as follows: Yes = 1 points. No = 0 point. Patient score that is >/=12 is considered to be at potential nutritional risk and could benefit from a referral to a registered dietitian. - Nutrition Survey Initial Have you lost >10 lbs over the past 2 months without trying?: No Are you following a special diet at home for diabetes, low fat, or low salt?: No Are you interested in meeting with a dietitian for help understanding your diet?: Yes Do you eat less than 3 meals a day?: No Do you eat fatty meats ([place], sausage, ribs, etc), fried foods, desserts, large amounts of salad dressings, margarine, butter, or cheese most days?: No Do you have food allergies? [Enter types in comment field]: No Do you eat in restaurants more than 3 times a week?: No Do you season food with salt, seasoning salt, or garlic salt?: No Do you used canned, boxed, frozen meals, or soups, seasoning packets?: No Total Score:: 1
[2018-10-03 13:50] VITALS: BP 119/80
== END ==
PROVIDERS: Family Provider Internal Medicine; PCP Internal Medicine; Referring Provider Internal Medicine Cardiovascular Disease; Visit Provider Internal Medicine Cardiovascular Disease
DX: Z95.5 Presence of coronary angioplasty implant and graft (principal); I25.10 Atherosclerotic heart disease of native coronary artery without angina pectoris; I25.2 Old myocardial infarction; E78.5 Hyperlipidemia, unspecified; E66.8 Other obesity

== ENCOUNTER 2018-10-25 08:00 | Outpatient (RCR) | payer BC, SELFPAY ==
[2018-09-18 14:25] VITALS: BMI 30.7
[2018-10-03 13:06] VITALS: BMI 28.8
== END 2018-10-27 23:59 ==
LOC: CR 08:00
PROVIDERS: Family Provider Internal Medicine; PCP Internal Medicine; Referring Provider Internal Medicine Cardiovascular Disease; Visit Provider Internal Medicine Cardiovascular Disease
DX: E78.5 Hyperlipidemia, unspecified (principal); I25.10 Atherosclerotic heart disease of native coronary artery without angina pectoris; I21.4 Non-ST elevation (NSTEMI) myocardial infarction; Z95.5 Presence of coronary angioplasty implant and graft
CPT/HCPCS: 93798

== ENCOUNTER 2018-11-25 08:00 | Outpatient (RCR) | payer BC, SELFPAY ==
[2018-09-18 14:25] VITALS: BMI 30.7
[2018-10-03 13:06] VITALS: BMI 28.8
--- NOTE | 2018-11-01 13:33 | PCM.CR.ITP ---
General Information - General Information Admitting Diagnosis: PCI with stent - Education/Goals Cardiac Rehabilitation Goals: 1. Maintain the individual as the primary focus of care. 2. To improve the patient's quality of life. 3. Identification of cardiac risk factors and provide cardiac risk factor management. 4. Enhance the psychosocial status of the patient. 5. Reconditioning enough to allow the patient to resume customary activities. 6. Control symptoms of cardiac disease Scale for measuring improvement of personal goals: Enter appropriate number in Comments. 2 = Unchanged. 3 = Slightly Better. 4 = Moderate Improvement. 5 = Met my Goal Exercise - 30-day Assessment - Visit Date of Eval: 11/01/18 Session #:: 11 - Stages of Change Stages of Change:: Action - Physician Prescribed Exercise Modalities: Treadmill, Rower, Airdyne Frequency (days/week): 3 Duration (Minutes):: 30-45 Intensity: 60-80% age predicted maximum heart rate reserve METs - Progression: 0.5-1.0 MET, RPE 11-14 WEEK: 6.5 Target Heart Rate:: 124/136 Max HR 149 - Hypertension Resting Blood Pressure:: 120/72 - Intervention Home Exercise/Activity Goal:: Sitting Time <3 hrs/day - Education Goals:: Warm-up, RPE DAVID Scale, S/S, Safe Exercise, Self-Monitoring - Exercise Program Goals Exercise Program Goals: Aerobic Activity >30 min, B/P <130/80 Nutrition - Initial Assessment - Program Goals Nutrition Program Goals: LDL <70. Total Cholesterol <200. HDL >45. Triglycerides <150. HgbA1C <7%. BMI <25 - Diabetes Do you monitor your blood sugar at home?: No Nutrition - 30-Day Assessment - Program Goals Nutrition Program Goals: LDL <70. Total Cholesterol <200. HDL >45. Triglycerides <150. HgbA1C <7%. BMI <25 - Visit Date of Eval: 11/01/18 - Stages of Change Stages of Change:: Action - Weight Management Weight:: 100.244 kg - Intervention Referral to dietitian:: Yes Referral to Diabetic Clinic:: No Will attend diet classes:: Yes - Education Attended class for:: Signs & symptoms of hypoglycemia, Signs & symptoms of hyperglycemia, Relate diabetes to coronary artery disease, Healthy eating Tobacco - Initial Assessment - Program Goals Tobacco Program Goals: Complete smoking cessation. Attend education classes. Improve Knowledge Test score - Learning Barriers Learning Barriers: Ready to Learn Tobacco - 30-Day Assessment - Program Goals Tobacco Program Goals: Complete smoking cessation. Attend education classes. Improve Knowledge Test score - Stage of Change Stages of Change:: Action - Learning Barriers Learning Barriers: Participates in education - Family Support Do you have family support?: Yes - Tobacco Use Tobacco Use: Non-smoker Do you use smokeless tobacco?: No - Intervention Smoking Cessation Referral:: No Individual Education/Counseling:: No Education Schedule Given:: Yes - Education Attended class for:: Tobacco triggers, Coronary artery disease, Risk factors, Sexuality, Medical compliance, Cardiac A&P, Angina signs & symptoms Psychosocial - Initial Assess - Target Goals Target Goals: Assess presence or absence of depression. Using a valid screening tool, maximizes coping skills. Positive support system - Psychosocial Test Tool Used:: HANDS Depression Questionnaire - Assistive Devices Fall Risk Assessed:: Yes Psychosocial - 30-Day Assess - Target Goals Target Goals: Assess presence or absence of depression. Using a valid screening tool, maximizes coping skills. Positive support system - Stages of Change Stages of Change:: Action - Psychosocial Test Tool Used:: HANDS Depression Questionnaire - Intervention PS - Interventions: Yes Attend Stress Management Classes, Yes Uses Stress Management Skills, No Referral to Mental Health, No Referral to [facility] Case Management, No Referral to Physician - Education Attended classes for:: Coping techniques, Signs & symptoms of depression, Stress management, Relaxation techniques - Assistive Devices Assistive Devices:: None Fall Risk Assessed:: Yes Patient Health Questionnaire 30-Day Re-eval Assessment 1. Little interest or pleasure in doing things: Not at all 2. Feeling down, depressed, or hopeless: Not at all 3. Trouble falling or staying asleep, or sleeping too much: Several days 4. Feeling tired or having little energy: Several days 5. Poor appetite or overeating: Not at all 6. Feeling bad about yourself -- or that you are a failure or have let yourself or your family down: Not at all 7. Trouble concentrating on things, such as reading the newspaper or watching television: Not at all 8. Moving or speaking so slowly that other people could have noticed. Or the opposite - being so fidgety or restless that you have been moving around a lot more than usual: Not at all 9. Thoughts that you would be better off , or of hurting yourself in some way: Not at all How difficult have these problems made it for you to do your work, take care of things at home, or get along with other people?: Not difficult at all Total Score: 2 Self-Efficacy 30-Day Re-eval Assessment We would like to know how confident you are in doing certain activities. Please select your confidence level for:: Select your confidence level for the following using the scale 1-10 where 1 is not at all confident and 10 is totally confident. Your score is the average of all 6 responses. Fatigue: How confident are you that you can keep the fatigue caused by your disease from interfering with the things you want to do? Select Number: 8 Physical Discomfort or Pain: How confident are you that you can keep the physical discomfort or pain of your disease from interfering with the things you want to do? Select Number: 8 Emotional Distress: How confident are you that you can keep the emotional distress caused by your disease from interfering with the things you want to do? Select Number: 8 Other Symptoms or Health Problems: How confident are you that you can keep other symptoms or health problems from interfering with the things you want to do? Select Number: 8 Different Tasks and Activities: How confident are you that you can do the different tasks and activities needed to manage your health condition so as to reduce your need to see a doctor? Select Number: 10 Medication: How confident are you that you can do things other than just taking medication to reduce how much your illness affects your everyday life? Select Number: 10 Total Score:: 8
[2018-11-01 13:39] VITALS: BP 120/72
== END 2018-11-26 23:59 ==
LOC: CR 08:00
PROVIDERS: Family Provider Internal Medicine; PCP Internal Medicine; Referring Provider Internal Medicine Cardiovascular Disease; Visit Provider Internal Medicine Cardiovascular Disease
DX: E78.5 Hyperlipidemia, unspecified (principal); I25.10 Atherosclerotic heart disease of native coronary artery without angina pectoris; I21.4 Non-ST elevation (NSTEMI) myocardial infarction; Z95.5 Presence of coronary angioplasty implant and graft
CPT/HCPCS: 93798

== ENCOUNTER → 2018-12-04 06:24 | Outpatient (CLI) | payer BC, SELFPAY ==
[2018-09-18 14:25] VITALS: BMI 30.7
[2018-10-03 13:06] VITALS: BMI 28.8
--- NOTE | 2018-12-04 12:15 | STRESSREP ---
Stress Test Report Exercise myocardial perfusion stress test. 58-year-old male with a history of chest pain. Medications: Aspirin, atorvastatin, metoprolol, lisinopril. Stress protocol: Resting EKG demonstrates sinus rhythm with a rate of 59 bpm normal intervals are noted resting blood pressures 112/78 mmHg. T wave inversions was noted in lead I and aVL. The patient exercised according to regular Yusuf protocol for total duration of 12 minutes completing stage IV of the Yusuf protocol. The maximum heart rate attained was 142 bpm which was 88% of maximum predicted heart rate the maximum workload was 13.7 metabolic equivalents. At rest T wave inversions were noted in lead I and aVL and a peak exercise the T wave inversions persisted. There were no other ST or T wave changes noted to suggest ischemia. No clinical angina was noted. The resting blood pressure was 112/78 with a peak blood pressure 160/70 rate pressure product was 22,500. Myocardial perfusion protocol. 14.4 mCi of technetium 99m sestamibi was injected at rest. Patient exercised according to regular Yusuf protocol. At peak exercise 44.3 mCi of technetium 99m sestamibi was injected stress images were obtained stress and rest images were reconstructed and compared in the short axis vertical and horizontal long axis. Gated images were also obtained Perfusion SPECT analysis: Review of the stress images demonstrate normal uptake of tracer noted in all areas of the myocardium. The resting images similarly demonstrate normal uptake of tracer noted in all areas of the myocardium. No areas of reversibility are noted suggest ischemia no previous infarct is noted. Gated SPECT analysis: The gated ejection fraction is noted to be 65%. Conclusion: Normal exercise myocardial perfusion stress test at a high workload. Preserved ejection fraction Excellent functional capacity.
== END ==
PROVIDERS: Family Provider Internal Medicine; PCP Internal Medicine; Referring Provider Nurse Practitioner Family; Visit Provider Nurse Practitioner Family
DX: I25.10 Atherosclerotic heart disease of native coronary artery without angina pectoris (principal); I25.2 Old myocardial infarction; E78.5 Hyperlipidemia, unspecified; R07.9 Chest pain, unspecified; Z95.5 Presence of coronary angioplasty implant and graft
CPT/HCPCS: 78452; 93017; A9500; A4216

== ENCOUNTER 2018-12-27 08:00 | Outpatient (RCR) | payer BC, SELFPAY ==
[2018-09-18 14:25] VITALS: BMI 30.7
[2018-10-03 13:06] VITALS: BMI 28.8
[2018-11-27 01:30] VITALS: BP 120/72
--- NOTE | 2018-12-02 08:16 | CR.ITP_ITS ---
General Information - General Information Admitting Diagnosis: PCI with stenting - Education/Goals Cardiac Rehabilitation Goals: 1. Maintain the individual as the primary focus of care. 2. To improve the patient's quality of life. 3. Identification of cardiac risk factors and provide cardiac risk factor management. 4. Enhance the psychosocial status of the patient. 5. Reconditioning enough to allow the patient to resume customary activities. 6. Control symptoms of cardiac disease Scale for measuring improvement of personal goals: Enter appropriate number in Comments. 2 = Unchanged. 3 = Slightly Better. 4 = Moderate Improvement. 5 = Met my Goal Exercise - 60-Day Assessment - Visit Date of Eval: 12/02/18 Session #:: 22 - Stages of Change Stages of Change:: Action - Physician Prescribed Exercise Modalities: Treadmill, Rower, Airdyne Frequency (days/week): 3 Duration (Minutes):: 30-45 Intensity: 60-80% age predicted maximum heart rate reserve METs - Progression: 0.5-1.0 MET, RPE 11-14 WEEK: 7.7 Target Heart Rate:: 136-142 Max HR 137 - Hypertension Resting Blood Pressure:: 116/62 Peak Exercise Blood Pressure:: 128/80 - Intervention Home Exercise/Activity Goal:: Moderate Exercise 30 min/day x 5 days/wk - Education Goals:: Warm-up, RPE DAVID Scale, S/S, Safe Exercise, Self-Monitoring - Exercise Program Goals Exercise Program Goals: Aerobic Activity >30 min, B/P <130/80 Nutrition - Initial Assessment - Program Goals Nutrition Program Goals: LDL <70. Total Cholesterol <200. HDL >45. Trigly cerides <150. HgbA1C <7%. BMI <25 - Diabetes Do you monitor your blood sugar at home?: No Nutrition - 60-Day Assessment - Program Goals Nutrition Program Goals: LDL <70. Total Cholesterol <200. HDL >45. Triglycerides <150. HgbA1C <7%. BMI <25 - Visit Date of Eval: 12/02/18 - Stages of Change Stages of Change:: Action - Diabetes Diabetes:: No - Weight Management Weight:: 222 kg - Intervention Referral to dietitian:: No Referral to Diabetic Clinic:: No Will attend diet classes:: Yes - Education Attended class for:: Signs & symptoms of hypoglycemia, Signs & symptoms of hyperglycemia, Relate diabetes to coronary artery disease, Healthy eating Tobacco - Initial Assessment - Program Goals Tobacco Program Goals: Complete smoking cessation. Attend education classes. Improve Knowledge Test score - Learning Barriers Learning Barriers: Ready to Learn Tobacco - 60-Day Assessment - Program Goals Tobacco Program Goals: Complete smoking cessation. Attend education classes. Improve Knowledge Test score - Stage of Change Stages of Change:: Action - Learning Barriers Learning Barriers: Participates in education - Family Support Do you have family support?: Yes - Tobacco Use Tobacco Use: Non-smoker - Intervention Smoking Cessation Referral:: No Individual Education/Counseling:: No Education Schedule Given:: Yes - Education Attended class for:: Tobacco triggers, Coronary artery disease, Risk factors, Sexuality, Medical compliance, Cardiac A&P, Angina signs & symptoms Psychosocial - Initial Assess - Target Goals Target Goals: Assess presence or absence of depression. Using a valid screening tool, maximizes coping skills. Positive support system - Psychosocial Test Tool Used:: HANDS Depression Questionnaire - Assistive Devices Fall Risk Assessed:: Yes Psychosocial - 60-Day Assess - Target Goals Target Goals: Assess presence or absence of depression. Using a valid screening tool, maximizes coping skills. Positive support system - Stages of Change Stages of Change:: Action - Psychosocial Test Tool Used:: HANDS Depression Questionnaire - Intervention PS - Interventions: Yes Attend Stress Management Classes, Yes Uses Stress Management Skills, No Referral to Mental Health, No Referral to [facility] Case Manag ement, No Referral to Physician - Education Attended classes for:: Coping techniques, Signs & symptoms of depression, Stress management, Relaxation techniques - Assistive Devices Assistive Devices:: None Fall Risk Assessed:: Yes Patient Health Questionnaire 60-Day Re-eval Assessment 1. Little interest or pleasure in doing things: Not at all 2. Feeling down, depressed, or hopeless: Not at all 3. Trouble falling or staying asleep, or sleeping too much: Several days 4. Feeling tired or having little energy: Several days 5. Poor appetite or overeating: Not at all 6. Feeling bad about yourself -- or that you are a failure or have let yourself or your family down: Not at all 7. Trouble concentrating on things, such as reading the newspaper or watching television: Not at all 8. Moving or speaking so slowly that other people could have noticed. Or the opposite - being so fidgety or restless that you have been moving around a lot more than usual: Not at all 9. Thoughts that you would be better off , or of hurting yourself in some way: Not at all Total Score: 2 Self-Efficacy 60-Day Re-eval Assessment We would like to know how confident you are in doing certain activities. Please select your confidence level for:: Select your confidence level for the following using the scale 1-10 where 1 is not at all confident and 10 is totally confident. Your score is the average of all 6 responses. Fatigue: How confident are you that you can keep the fatigue caused by your disease from interfering with the things you want to do? Select Number: 8 Physical Discomfort or Pain: How confident are you that you can keep the physical discomfort or pain of your disease from interfering with the things you want to do? Select Number: 8 Emotional Distress: How confident are you that you can keep the emotional distress caused by your disease from interfering with the things you want to do? Select Number: 8 Other Symptoms or Health Problems: How confident are you that you can keep other symptoms or health problems from interfering with the things you want to do? Select Number: 8 Different Tasks and Activities: How confident are you that you can do the different tasks and activities needed to manage your health condition so as to reduce your need to see a doctor? Select Number: 10 Medication: How confident are you that you can do things other than just taking medication to reduce how much your illness affects your everyday life? Select Number: 10 Total Score:: 8
[2018-12-02 08:17] VITALS: BP 116/62; BP 128/80
== END 2018-12-27 23:59 ==
LOC: CR 08:00
PROVIDERS: Family Provider Internal Medicine; PCP Internal Medicine; Referring Provider Internal Medicine Cardiovascular Disease; Visit Provider Internal Medicine Cardiovascular Disease
DX: E78.5 Hyperlipidemia, unspecified (principal); I25.10 Atherosclerotic heart disease of native coronary artery without angina pectoris; I21.4 Non-ST elevation (NSTEMI) myocardial infarction; Z95.5 Presence of coronary angioplasty implant and graft
CPT/HCPCS: 93798

== ENCOUNTER 2019-01-06 08:00 | Outpatient (RCR) | payer BC, SELFPAY ==
[2018-09-18 14:25] VITALS: BMI 30.7
[2018-10-03 13:06] VITALS: BMI 28.8
[2018-12-28 00:58] VITALS: BP 116/62; BP 128/80
--- NOTE | 2019-01-01 08:26 | CR.ITP_ITS ---
Exercise - 90-Day Assessment - Visit Date of Eval: 01/01/19 Session #:: 34 - Stages of Change Stages of Change:: Action - Physician Prescribed Exercise Modalities: Treadmill, Rower, Airdyne Frequency (days/week): 3 Duration (Minutes):: 30-45 Intensity: 60-80% age predicted maximum heart rate reserve METs - Progression: 0.5-1.0 MET, RPE 11-14 WEEK: 8 - Hypertension Resting Blood Pressure:: 104/60 Peak Exercise Blood Pressure:: 160/90 Medication Changes:: Yes - Intervention Home Exercise/Activity Goal:: Moderate Exercise 30 min/day x 5 days/wk - Education Goals:: Warm-up, RPE DAVID Scale, S/S, Safe Exercise, Self-Monitoring - Exercise Program Goals Exercise Program Goals: Aerobic Activity >30 min Nutrition - Initial Assessment - Program Goals Nutrition Program Goals: LDL <70. Total Cholesterol <200. HDL >45. Triglycerides <150. HgbA1C <7%. BMI <25 - Diabetes Do you monitor your blood sugar at home?: No Nutrition - 90-Day Assessment - Program Goals Nutrition Program Goals: LDL <70. Total Cholesterol <200. HDL >45. Triglycerides <150. HgbA1C <7%. BMI <25 - Visit Date of Eval: 01/01/19 - Stages of Change Stages of Change:: Action - Lipids Has the patient seen the dietitian?: No - Diabetes Diabetes:: No Insulin: No Non-Insulin Dependent?: No - Weight Management Weight:: 220 lb - Intervention Referral to dietitian:: No Referral to Diabetic Clinic:: No Will attend diet classes:: Yes - Education Attended class for:: Healthy eating Tobacco - Initial Assessment - Program Goals Tobacco Program Goals: Complete smoking cessation. Attend education classes. Improve Knowledge Test score - Learning Barriers Learning Barriers: Ready to Learn Tobacco - 90-Day Assessment - Program Goals Tobacco Program Goals: Complete smoking cessation. Attend education classes. Improve Knowledge Test score - Stage of Change Stages of Change:: Action - Learning Barriers Learning Barriers: Participates in education, Change in behavior - Family Support Do you have family support?: Yes - Tobacco Use Tobacco Use: Non-smoker Do you use smokeless tobacco?: No - Intervention Smoking Cessation Referral:: No Individual Education/Counseling:: No Education Schedule Given:: Yes - Education Attended class for:: Coronary artery disease, Risk factors, Sexuality, Medical compliance, Cardiac A&P, Angina signs & symptoms Psychosocial - Initial Assess - Target Goals Target Goals: Assess presence or absence of depression. Using a valid screening tool, maximizes coping skills. Positive support system - Psychosocial Test Tool Used:: HANDS Depression Questionnaire - Assistive Devices Fall Risk Assessed:: Yes Psychosocial - 90-Day Assess - Target Goals Target Goals: Assess presence or absence of depression. Using a valid screening tool, maximizes coping skills. Positive support system - Stages of Change Stages of Change:: Action - Psychosocial Test Tool Used:: HANDS Depression Questionnaire - Intervention PS - Interventions: Yes Attend Stress Management Classes, No Referral to Mental Health, No Referral to [facility] Case Management, No Referral to Physician, No Uses Stress Management Skills - Education Attended classes for:: Coping techniques, Signs & symptoms of depression, Stress management, Relaxation techniques - Patient/Program Goal Preventative Medication(s):: Aspirin, Clopidogrel, Beta deja, Statin/lipid - Assistive Devices Assistive Devices:: None Fall Risk Assessed:: Yes Patient Health Questionnaire 90-Day Re-eval Assessment 1. Little interest or pleasure in doing things: Not at all 2. Feeling down, depressed, or hopeless: Not at all 3. Trouble falling or staying asleep, or sleeping too much: Not at all 4. Feeling tired or having little energy: Not at all 5. Poor appetite or overeating: Not at all 6. Feeling bad about yourself -- or that you are a failure or have let yourself or your family down: Not at all 7. Trouble concentrating on things, such as reading the newspaper or watching television: Not at all 8. Moving or speaking so slowly that other people could have noticed. Or the opposite - being so fidgety or restless that you have been moving around a lot more than usual: Not at all 9. Thoughts that you would be better off , or of hurting yourself in some way: Not at all How difficult have these problems made it for you to do your work, take care of things at home, or get along with other people?: Not difficult at all Total Score: 0 Self-Efficacy 90-Day Re-eval Assessment We would like to know how confident you are in doing certain activities. Please select your confidence level for:: Select your confidence level for the following using the scale 1-10 where 1 is not at all confident and 10 is totally confident. Your score is the average of all 6 responses. Fatigue: How confident are you that you can keep the fatigue caused by your disease from interfering with the things you want to do? Select Number: 10 Physical Discomfort or Pain: How confident are you that you can keep the physical discomfort or pain of your disease from interfering with the things you want to do? Select Number: 10 Emotional Distress: How confident are you that you can keep the emotional distre ss caused by your disease from interfering with the things you want to do? Select Number: 10 Other Symptoms or Health Problems: How confident are you that you can keep other symptoms or health problems from interfering with the things you want to do? Select Number: 10 Different Tasks and Activities: How confident are you that you can do the different tasks and activities needed to manage your health condition so as to reduce your need to see a doctor? Select Number: 10 Medication: How confident are you that you can do things other than just taking medication to reduce how much your illness affects your everyday life? Select Number: 10 Total Score:: 10
[2019-01-01 08:29] VITALS: BP 104/60; BP 160/90
== END 2019-01-26 23:59 ==
LOC: CR 08:00
PROVIDERS: Family Provider Internal Medicine; PCP Internal Medicine; Referring Provider Internal Medicine Cardiovascular Disease; Visit Provider Internal Medicine Cardiovascular Disease
DX: E78.5 Hyperlipidemia, unspecified (principal); I25.10 Atherosclerotic heart disease of native coronary artery without angina pectoris; I21.4 Non-ST elevation (NSTEMI) myocardial infarction; Z95.5 Presence of coronary angioplasty implant and graft
CPT/HCPCS: 93798

== ENCOUNTER → 2019-04-16 10:15 | Outpatient (CLI) | payer BC, SELFPAY ==
[2018-09-18 14:25] VITALS: BMI 30.7
[2019-04-16 10:15] VITALS: BMI 26.8
--- NOTE | 2019-04-16 10:18 | RAD_ITS ---
STUDY: X-RAY CHEST REASON FOR EXAM: Male, 58 years old. Cough. TECHNIQUE: PA and lateral CXR COMPARISON: 09/18/2018 CXR FINDINGS: No apparent pneumothorax, pneumonia, pleural effusion, or edema. Cardiac silhouette, gumaro and mediastinal contours are within normal limits. No acute osseous abnormality. No evidence of free air under the diaphragm. RAD/Chest PA and Lateral IMPRESSION: Negative chest radiograph. Electronically Signed: Joe Max, at 14:51 EDT Tel , Service support ,
== END ==
PROVIDERS: Family Provider Internal Medicine; PCP Internal Medicine; Referring Provider Physician Assistant; Visit Provider Physician Assistant
DX: R05 Cough (principal)
CPT/HCPCS: 71046

== ENCOUNTER → 2019-05-01 07:42 | Outpatient (CLI) | payer BC, SELFPAY ==
[2018-09-18 14:25] VITALS: BMI 30.7
[2019-04-17 14:25] VITALS: BMI 27.2
[2019-05-01 08:53] LABS: AST(SGOT) 24 U/L (15-37); Alanine Aminotransfer ALT/SGPT 39 U/L (16-61); Alkaline Phosphatase 73 U/L (45-117); Bilirubin, Direct 0.14 mg/dL (0.00-0.30); Cholesterol 156 mg/dL (200); Globulin 3.1 g/dL (2.2-4.2); High Density Lipoprotein 61 mg/dL; Protein, Total 7.1 g/dL (6.4-8.2); Triglycerides 82 mg/dL; Very Low Density Lipoprotein 16 mg/dL (5-40)
== END ==
PROVIDERS: Family Provider Internal Medicine; PCP Internal Medicine; Referring Provider Internal Medicine Cardiovascular Disease; Visit Provider Internal Medicine Cardiovascular Disease
DX: E78.5 Hyperlipidemia, unspecified (principal)
CPT/HCPCS: 36415; 80061; 80076

== ENCOUNTER → 2020-07-09 06:47 | Outpatient (CLI) | payer BC, SELFPAY ==
[2018-09-18 14:25] VITALS: BMI 30.7
[2020-06-29 09:17] VITALS: BMI 29.5
--- NOTE | 2020-07-09 06:52 | ECHOCS_ITS ---
Version 2 Reason For Study: CAD/ASHD Procedure This was a 2D Doppler, Color Flow transthoracic echocardiogram. The study was technically difficult. Contrast injection was performed. Exam performed in department. Left Ventricle Normal LV size. Mild concentric left ventricular hypertrophy. Left ventricular systolic function is normal. The estimated ejection fraction is 60 %. No regional wall motion abnormalities noted. Right Ventricle Normal RV size. Normal systolic function. Atria Normal left atrium. Normal right atrium. Mitral Valve Normal mitral valve. Tricuspid Valve Normal tricuspid valve. Mild (1+) tricuspid valve insufficiency. Pulmonary artery systolic pressure is 28 mmHg. Aortic Valve Trisinus/trileaflet aortic valve. Pulmonic Valve Normal pulmonic valve. Great Vessels Normal aortic root. The pulmonary artery is normal size. Normal inferior vena cava. Pericardium/Pleural No pericardial effusion. Medication 22 gauge I.V. with prn adaptor inserted into right arm. Diluted definity 3ml given slow IV push to enhance endocardial definition. MMode/2D Measurements & Calculations LVIDd: 5.3 cm IVSd: 1.3 cm LA dimension: 4.0 cm LVIDs: 3.4 cm LVPWd: 1.3 cm RVDd: 3.4 cm FS: 35.8 % LAV(MOD-bp): 57.9 ml LA A4 area: 19.1 cm2 RA A4 area: 14.8 cm2 LAV(MOD-bp) Indexed: 25.1 ml/m2 LAV(MOD-sp2): 57.9 ml LAV(MOD-sp4): 55.2 ml Time Measurements MV dec time: 0.29 sec Doppler Measurements & Calculations MV E max deejay: 50.6 cm/sec Lat Peak E' Deejay: 12.1 cm/sec Med Peak E' Deejay: 7.7 cm/sec MV A max deejay: 58.9 cm/sec E/E' lat: 4.2 E/E' med: 6.6 MV E/A: 0.86 MV V2 max: 66.4 cm/sec MV P1/2t max deejay: 61.3 cm/sec Ao V2 max: 112.2 cm/sec MV max P.8 mmHg MV P1/2t: 79.4 msec Ao max P.0 mmHg MV V2 mean: 35.3 cm/sec MV dec slope: 225.9 cm/sec2 MV mean P.59 mmHg MV V2 VTI: 19.2 cm MVA(P1/2t): 2.8 cm2 LV V1 max: 104.6 cm/sec PA V2 max: 100.2 cm/sec TR max deejay: 245.2 cm/sec LV V1 max P.4 mmHg TR max P.1 mmHg Interpretation Summary Normal LV size. Mild concentric left ventricular hypertrophy. Left ventricular systolic function is normal. The estimated ejection fraction is 60 %. Pulmonary artery systolic pressure is 28 mmHg. Contrast injection was performed. Ordering Physician: Cliff Quinones Referring Physician: Sandoval Lion M.D. Performed By: Obi Weinstein RCS
--- NOTE | 2020-07-09 16:42 | STRESSREP ---
Stress Test Report Exercise myocardial perfusion stress test. 60-year-old man with a history of previous angioplasty and stenting of the left anterior descending artery. Stress protocol: Resting EKG demonstrates sinus bradycardia with a rate of 58 bpm normal intervals are noted resting blood pressure is 126/74 mmHg. The patient exercised according to regular Yusuf protocol for a total duration of 12 minutes. Patient completed stage IV of the Yusuf protocol. The maximum heart rate attained was 153 bpm which was 96% of max impacted heart rate the maximum workload was 13.7 metabolic equivalents. At rest there were no ST or T wave changes noted suggest ischemia at peak exercise upsloping ST changes only were noted with no meet the criteria for ischemia. No clinical angina was noted. The test was terminated due to the target heart rate being achieved. Myocardial perfusion protocol. 14.3 mCi of technetium 99m sestamibi was injected at rest. The patient exercised according to regular Yusuf protocol and at peak exercise 44.7 mCi of technetium 99m sestamibi was injected stress images were obtained stress and rest images were reconstructed and compared in the short axis vertical and horizontal long axis. Gated images were also obtained Perfusion SPECT analysis: Review of the stress images demonstrate normal uptake of tracer noted in all areas of the myocardium the resting images demonstrate normal uptake of tracer noted in all areas of the myocardium. No reversibility is noted suggest ischemia no previous infarct is noted. Gated SPECT analysis: The gated ejection fraction is 70%. Conclusion: Normal exercise myocardial perfusion stress test at a high workload. No clinical angina noted. No ischemia present.
== END ==
PROVIDERS: PCP Internal Medicine; Referring Provider Internal Medicine Cardiovascular Disease; Visit Provider Internal Medicine Cardiovascular Disease
DX: I25.10 Atherosclerotic heart disease of native coronary artery without angina pectoris (principal); Z95.5 Presence of coronary angioplasty implant and graft
CPT/HCPCS: 78452; 93017; 93306; A9500; Q9957; A4216; C8929

== ENCOUNTER → 2021-06-24 08:45 | Outpatient (CLI) | payer BC, SELFPAY ==
[2018-09-18 14:25] VITALS: BMI 30.7
[2021-06-24 12:01] LABS: AST(SGOT) 25 U/L (15-37); Alanine Aminotransfer ALT/SGPT 43 U/L (16-61); Albumin, Serum 3.8 g/dL (3.2-5.0); Alkaline Phosphatase 69 U/L (45-117); Bilirubin, Direct 0.21 mg/dL (0.00-0.30); Cholesterol 182 mg/dL (200); Globulin 3.7 g/dL (2.2-4.2); High Density Lipoprotein 71 mg/dL; Protein, Total 7.5 g/dL (6.4-8.2); Triglycerides 70 mg/dL; Very Low Density Lipoprotein 14 mg/dL (5-40)
== END ==
PROVIDERS: Nurse Practitioner Family; PCP Internal Medicine; Visit Provider Internal Medicine
DX: E78.2 Mixed hyperlipidemia (principal); D69.6 Thrombocytopenia, unspecified; E78.00 Pure hypercholesterolemia, unspecified; E78.5 Hyperlipidemia, unspecified
CPT/HCPCS: 36415; 80061; 80076

== ENCOUNTER → 2022-08-18 | Outpatient (CLI) | payer BC, SELFPAY ==
[2018-09-18 14:25] VITALS: BMI 30.7
[2022-08-18 08:33] LABS: AST(SGOT) 23 U/L (15-37); Alanine Aminotransfer ALT/SGPT 38 U/L (16-61); Alkaline Phosphatase 58 U/L (45-117); Bilirubin, Direct 0.21 mg/dL (0.00-0.30); Cholesterol 175 mg/dL (200); Globulin 2.8 g/dL (2.2-4.2); High Density Lipoprotein 72 mg/dL; Protein, Total 6.8 g/dL (6.4-8.2); Thyroid Stim Hormone (TSH) 5.53 uIU/mL (0.358-3.74); Triglycerides 79 mg/dL; Very Low Density Lipoprotein 16 mg/dL (5-40)
== END | disposition home or self-care (01) ==
LOC: LAB 07:43
PROVIDERS: Internal Medicine Cardiovascular Disease; PCP Internal Medicine; Referring Provider Nurse Practitioner; Visit Provider Nurse Practitioner
DX: E03.8 Other specified hypothyroidism (principal); Z79.899 Other long term (current) drug therapy
CPT/HCPCS: 36415; 80061; 80076; 84443

== ENCOUNTER → 2023-11-13 | Outpatient (CLI) | payer MEDICARE, OTHER, SELFPAY ==
[2018-09-18 14:25] VITALS: BMI 30.7
--- NOTE | 2023-11-13 18:33 | STRESSREP ---
Stress Test Report Exercise myocardial perfusion stress test. 63-year-old man with a history of coronary artery disease Stress protocol: Resting EKG demonstrates sinus bradycardia with a rate of 52 bpm resting blood pressure is 120/72 mmHg. The patient exercised according to the regular Yusuf protocol for a total duration of 12 minutes attaining a maximum heart rate of 141 bpm which was 90% of maximum predicted heart rate; the maximum workload was 13.7 metabolic equivalents. At rest there were no ST or T wave changes noted to suggest ischemia and at peak exercise upsloping ST changes only were noted which did not meet the criteria for ischemia. No clinical angina was noted the test was terminated due to the target heart rate being achieved/fatigue. The peak blood pressure was 172/68 mmHg. Rate-pressure product was 24,000. Myocardial perfusion protocol. 11 point mCi of technetium 99m sestamibi was injected at rest. The patient exercised according to regular Yusuf protocol for total duration of 12-minute and at peak exercise 33 mCi of technetium 99m sestamibi was injected stress images were obtained stress and rest images were reconstructed in comparing the short axis vertical long and horizontal long axis. Gated images were also obtained. Perfusion SPECT analysis: Review of the stress images demonstrate normal uptake of tracer noted in all areas of the myocardium. The resting images similarly demonstrate normal uptake of tracer noted in all areas of the myocardium. No areas of reversibility are noted to suggest ischemia no previous infarct was noted. Gated SPECT analysis: The gated ejection fraction is 60%. Conclusion: Normal exercise myocardial perfusion stress test at a high workload Preserved ejection fraction.
== END | disposition home or self-care (01) ==
LOC: CVS 06:03
PROVIDERS: PCP Internal Medicine; Referring Provider Nurse Practitioner Family; Visit Provider Nurse Practitioner Family
DX: I25.10 Atherosclerotic heart disease of native coronary artery without angina pectoris (principal); E78.5 Hyperlipidemia, unspecified; Z95.5 Presence of coronary angioplasty implant and graft
CPT/HCPCS: 78452; 93017; A9500; A4216

== ENCOUNTER 2024-03-24 08:35 | Emergency (ER) | payer MEDICARE, OTHER, SELFPAY ==
[2018-09-18 14:25] VITALS: BMI 30.7
[2024-03-24 08:35] VITALS: BP 137/92; PULSE 56; RESP 16; TEMP 35.9; O2SAT 97; BMI 28.2
--- NOTE | 2024-03-24 09:00 | CT_ITS ---
STUDY: CT BRAIN WITHOUT CONTRAST REASON FOR EXAM: Male, 63 years old. Dizziness RADIATION DOSAGE (If Supplied By Facility): CTDIvol = ( 44.99 ) mGy, DLP = ( 863.60 ) mGycm TECHNIQUE: Transaxial CT imaging of the brain was performed without administration of intravenous contrast material. Individualized dose optimization techniques were used for this CT. COMPARISON: No relevant priors. FINDINGS: Normal soft tissue structures. Normal calvarium. Normal size ventricles and extra-axial spaces for the patient''s age. Normal white matter tracts of the cerebral hemispheres. Normal basal ganglia and thalami. Normal brainstem. Normal cerebellum. There is no intracranial hemorrhage. There are no findings of an acute ischemic infarction. Atherosclerotic calcification of the cavernous portions of the internal carotid arteries bilaterally. Normal visualized paranasal sinuses. CT/Brain/Head without Contrast IMPRESSION: Normal unenhanced CT scan of the brain. Electronically Signed: Nathaniel Tadeo MD at 9:43 EDT ,
--- NOTE | 2024-03-24 09:02 | EX.ED.DYSGE1 ---
HPI History of Present Illness Chief Complaint: Dizziness Informant: patient and spouse/S.O. Narrative Narrative: 63-year-old male presenting to the emergency room with chief complaint of dizziness. Patient states that during the night he turned his head and abruptly became dizzy. States he has sensation that the room was spinning towards the left but not in a full [place]. This made him nauseated. This happened throughout the night and persisted this morning. He feels off balance when he stands up. He notes that he recently was told that he had allergies and was treated with Flonase and Zyrtec. The past couple days he has had injected conjunctiva. He notes an abnormal sensation in his ears. Not painful. No drainage from the ears. He notes a prior history of coronary artery disease takes metoprolol aspirin and atorvastatin. Reported history of hypothyroidism. He denies headache. No speech difficulties. No vision change. No recent head injuries. Patient notes he needed to be brought back in a wheelchair due to difficulty walking with his symptoms. [facility] Medical History Hypothyroidism Anxiety History of non-ST elevation myocardial infarction (NSTEMI) (09/18/18) Hyperlipidemia Atherosclerosis of coronary artery of [place] heart without angina pectoris Home Medications ?Medication ?Instructions ?Recorded ?Last Taken ?Type aspirin 81 mg tablet,delayed 81 mg PO DAILY@0800 #90 tabs 09/19/18 Unknown Rx release turmeric root extract 1,053 mg 1,053 mg PO DAILY 09/19/22 Unknown History tablet atorvastatin 40 mg tablet 40 mg PO DAILY #90 tabs 11/05/23 Unknown Rx metoprolol succinate 25 mg See Rx Instructions .Route 11/05/23 Unknown Rx tablet,extended release 24 hr .COMPLEX #90 tabs diazepam 5 mg tablet 5 mg PO Q8 PRN vertigo #10 tabs 03/24/24 Unknown Rx levothyroxine 75 mcg tablet 75 mcg PO DAILY disorder of 03/24/24 Unknown History thyroid gland ondansetron 4 mg disintegrating 4 mg PO Q6H PRN PRN Nausea #10 tabs 03/24/24 Unknown Rx tablet Allergy/AdvReac Type Severity Reaction Status Date / Time No Known Allergies Allergy Verified 03/24/24 08:35 Family History Mother Hypertension Surgical History History of herniorrhaphy History of appendectomy History of coronary artery stent placement (09/18/18) Social History Smoking Status: Former smoker how long ago did patient quit smokin alcohol intake: current alcohol intake frequency: 0-2 drinks per day Alcohol type: wine substance use type: does not use caffeine: Yes Type: coffee Number of servings: 2 ROS ROS ED ROS Narrative Dizziness Constitutional Constitutional ED: Denies chills, fever(s) or weight loss Eyes Eyes: Denies change in vision or diplopia ENT ENT ED: Reports rhinorrhea and other Details: Injected conjunctiva ; Denies ear pain or sore throat Cardiovascular Cardiovascular: Denies chest pain, orthopnea, palpitations or racing heartbeat Respiratory/Chest Respiratory/Chest: Denies cough, dyspnea or orthopnea Gastrointestinal Gastrointestinal: Denies abdominal pain, diarrhea, nausea or vomiting Genitourinary Genitourinary ED: Denies dysuria, hematuria or urinary frequency Musculoskeletal Musculoskeletal: Denies arthralgias or myalgias Integumentary Denies abscess or rash Neurologic Neurologic: Denies headache(s), paresthesias or weakness Psychiatric Psychiatric: Denies anxiety, depression, suicidal ideation or suicidal thoughts Endocrine Endocrinology: Denies polydipsia, polyphagia or polyuria Allergic/Immunologic Allergic/Immunologic ED: Denies mouth swelling, tongue swelling or urticaria EXAM Physical Exam Const Vital Signs: 03/24/24 08:35 03/24/24 10:35 Temperature 96.7 F L Temperature Source Temporal Pulse Rate 56 L 52 L Respiratory Rate 16 14 Blood Pressure 137/92 H 118/74 Blood Pressure Mean 107 88 Pulse Ox 97 95 Oxygen Delivery Method Room Air Room Air Positive well nourished and well developed General Appearance ED: well developed HEENT Reports normocephalic, head/scalp atraumatic, TM's clear and moist mucous membranes HEENT Narrative: Mild conjunctival injection. I do not appreciate nystagmus. No cerumen impaction. No bulging of the tympanic membranes or significant retraction. Tympanic Membrane ED: Yes TM's clear Eyes PERRL and EOMs intact bilaterally Neck no lymphadenopathy, supple and no JVD Resp normal respiratory effort and clear to auscultation bilaterally Cardio regular rate, regular rhythm and no murmurs GI normal to inspection, nondistended, normoactive bowel sounds and non-tender Palpation: soft Back/Spine no CVA tenderness and normal ROM Extremity normal to inspection General Extremety ED: Negative for edema General Extremity: Negative for edema Neuro oriented x3 and CN's II-XII intact bilaterally Neuro Narrative: Patient reports an increase his symptoms if he turns his head in either direction. He did not get significant improvement with cannula 3 positioning technique. Sensorium / Orientation: alert Motor Exam: strength 5/5 throughout Psych mental status grossly normal Mood & Affect: Negative for depressed or tearful Skin no rashes or lesions noted and no wounds MDM MDM MDM Narrative Medical decision making narrative: Differential diagnosis includes but not limited to peripheral and central vertigo dehydration electrolyte abnormalities conjunctivitis allergic conjunctivitis cardiac dysrhythmia White count 2.9 with hemoglobin 14.3 and platelet count 129. BMP with normal electrolytes BUN 19 creatinine 0[address] the brain demonstrates no acute findings. He is in a sinus rhythm on the monitor. I performed repositioning technique and give the patient Valium and Zofran and he feels improved on repeat examination. He is able to walk to the bathroom without assistance. I will write for him to have Valium at home. Can also write for some Zofran. Patient is comfortable with follow-up return if worsening or concerns History & Record Review Discussion w/independent historian: Patient and Significant other Lab Data Attestation: I reviewed the patient's lab results. Labs: Laboratory Results - last 24 hr 03/24/24 09:10 WBC 2.9 L RBC 4.64 Hgb 14.3 Hct 43.8 MCV 94.4 H MCH 30.8 MCHC 32.6 RDW Std Deviation 46.9 H RDW Coeff of Fan 13.5 Plt Count 129 L MPV 11.2 Immature Gran % (Auto) 0.300 Neut % (Auto) 51.5 Lymph % (Auto) 35.1 [place] % (Auto) 10.7 H Eos % (Auto) 2.1 Baso % (Auto) 0.3 Absolute Neuts (auto) 1.5 L Absolute Lymphs (auto) 1.02 Nucleated RBC % 0 Sodium 140 Potassium 3.9 Chloride 109 H Carbon Dioxide 26.0 Anion Gap 5 BUN 19 H Creatinine 0.78 Estim Creat Clear Calc 116.19 Est GFR (MDRD) Af Amer 129 Est GFR (MDRD) Non-Af 107 BUN/Creatinine Ratio 24.5 H Glucose 139 H Calcium 8.7 Radiography Diagnostic Testing: Clinical Impression(s) from Imaging Studies Brain CT 03/24/24 09:00 IMPRESSION: Normal unenhanced CT scan of the brain. Electronically Signed: Nathaniel Tadeo MD at 9:43 EDT , Discharge Plan Triage Chief Complaint: Dizziness ED Provider: Fabrice Ortiz Dx/Rx/DC Orders Clinical Impression: Vertigo Instructions: ED BPV Vertigo Prescriptions: New diazepam 5 mg tablet 5 mg PO Q8 PRN (Reason: vertigo) Qty: 10 0RF ondansetron 4 mg tablet,disintegrating 4 mg PO Q6H PRN PRN (Reason: Nausea) Qty: 10 0RF No Action turmeric root extract 1,053 mg tablet 1,053 mg PO DAILY aspirin 81 MG tablet 81 mg PO DAILY@0800 Qty: 90 0RF levothyroxine 75 mcg tablet 75 mcg PO DAILY atorvastatin 40 mg tablet 40 mg PO DAILY Qty: 90 4RF metoprolol succinate 25 mg tablet extended release 24 hr See Rx Instructions .ROUTE .COMPLEX Qty: 90 4RF Dose Instruction: TAKE 1 TABLET BY MOUTH EVERY DAY Rx Instructions: TAKE 1 TABLET BY MOUTH EVERY DAY Primary Care Provider: Sandoval Lion Referrals: Sandoval Lion MD [Primary Care Provider] - 3-5 Days if not improving Activity Restrictions/Additional Instructions: He has not noted recommend changing her contacts out. Please do not wear contacts until your eye symptoms have resolved. If persistent redness or crusting of your eyelashes particularly in the morning or a lesion/pain please follow-up with your eye doctor or return here to emergency. You may certainly try the vertigo repositioning techniques on the handout that I gave elevated. Valium is going to help the dizziness. The Zofran is for nausea. Print Language: Upper Sor[place] Disposition Disposition: Home, Self Care Discharge Date/Time: 03/24/24 13:00 NIHSS NIHSS 1a. Level of Consciousness: Alert; keenly responsive 1b. LOC Questions: Answers BOTH questions correctly. 1c. LOC Commands: Performs both tasks correctly. 2. Best Gaze: Normal 3. Visual: No visual loss 4. Facial Palsy: Normal symmetrical movements 5a. Left Arm: No drift; arm holds 90 (or 45) degrees for full 10 seconds 5b. Right Arm: No drift; arm holds 90 (or 45) degrees for full 10 seconds 6a. Left Leg: No drift; leg holds 30-degree position for full 5 seconds 6b. Right Leg: No drift; leg holds 30-degree position for full 5 seconds 7. Limb Ataxia: Absent 8. Sensory: Normal; no sensory loss 9. Best Language: No aphasia; normal 10. Dysarthria: Normal 11. Extinction and Inattention: No abnormality Total: 0
[2024-03-24] MEDS: Ondansetron 4 MG/2 ML Vial IV (09:13)
[2024-03-24] MEDS: diazePAM 5 MG Tablet PO (09:13)
[2024-03-24 09:24] LABS: Absolute Lymphocyte Count 1.02 X10^3/uL (0.83-4.51); Absolute Neutrophil Count 1.5 X10^3/uL (2.0-7.7); Basophil# 0.01 X10^3/uL; Basophil% 0.3 % (0-1); Eosinophil# 0.06 X10^3/uL; Eosinophils% 2.1 % (0-5); Hematocrit 43.8 % (40-54); Hemoglobin 14.3 g/dL (13.0-16.5); Lymphocyte # 1.02 X10^3/ul (0.83-4.51); Lymphocyte % 35.1 % (19-41); Mean Corp Hgb Conc 32.6 g/dL (32-36); Mean Corpuscular Hgb 30.8 pg (27.0-32.0); Mean Corpuscular Volume 94.4 fL (80-94); Mean Platelet Vol. 11.2 fl (6.2-12.0); Monocyte# 0.31 X10^3/uL; Monocyte% 10.7 % (0-10); NRBC Flagged by Analyzer 0 % (0-5); Neutrophil % 51.5 % (47-70); Platelet Count 129 K/mm3 (150-450); RBC Distribution Width CV 13.5 % (11.6-14.6); RBC Distribution Width SD 46.9 fl (35.1-43.9); Red Blood Count 4.64 M/mm3 (4.6-6.2); White Blood Count 2.9 K/mm3 (4.4-11.0)
[2024-03-24 09:31] LABS: Anion Gap 5 (5-15); BUN 19 mg/dL (7-18); BUN/Creat Ratio 24.5 RATIO (10-20); Calcium,Total 8.7 mg/dL (8.5-10.1); Chloride 109 mmol/L (98-107); Creatinine, Serum 0.78 mg/dL (0.70-1.30); EST Glomerular Filtration Rate 107 mL/min (>60); Est Glom Filt Rate - Afr Amer 129 mL/min (>60); Estimated Creatinine Clearance 116.19 ml/min; Glucose 139 mg/dL (74-106); Potassium 3.9 mmol/L (3.5-5.1); Sodium Level 140 mmol/L (136-145)
[2024-03-24 10:35] VITALS: BP 118/74; PULSE 52; RESP 14; O2SAT 95
== END 2024-03-24 13:00 | disposition home or self-care (01) ==
PROVIDERS: Emergency Provider Emergency Medicine; PCP Internal Medicine; Visit Provider Emergency Medicine
DX: R42 Dizziness and giddiness (principal); I25.10 Atherosclerotic heart disease of native coronary artery without angina pectoris; I25.2 Old myocardial infarction; Z87.891 Personal history of nicotine dependence; Z95.5 Presence of coronary angioplasty implant and graft
CPT/HCPCS: 70450; 80048; 85025; 96374; 96376; 99283; A4216; J2405

== ENCOUNTER → 2024-09-23 | Outpatient (CLI) | payer MEDICARE, OTHER, SELFPAY ==
[2018-09-18 14:25] VITALS: BMI 30.7
[2024-09-24 12:43] LABS: AST(SGOT) 29 U/L (<=37); Alanine Aminotransfer ALT/SGPT 34 U/L (<=46); Albumin, Serum 4.4 g/dL (3.4-4.8); Alkaline Phosphatase 57 U/L (40-129); Anion Gap 14 (5-15); BUN 15 mg/dL (4-19); Bilirubin, Direct 0.19 mg/dL (0.00-0.30); Calcium 9.6 mg/dL (7.6-11.0); Carbon Dioxide 21.4 mmol/L (22.0-29.0); Chloride 107 mmol/L (96-108); Cholesterol 166 mg/dL (<=200); Creatinine, Serum 0.9 mg/dL (0.8-1.3); EST Glomerular Filtration Rate 92 (>60); Globulin 2.5 g/dL (2.2-4.2); Glucose 107 mg/dL (70-99); High Density Lipoprotein 68 mg/dL; Potassium 4.6 mmol/L (3.3-5.1); Protein, Total 6.9 g/dL (5.9-8.4); Sodium Level 142 mmol/L (133-145); Total Bilirubin 0.48 mg/dL (0.00-1.30); Triglycerides 77 mg/dL; Very Low Density Lipoprotein 15 mg/dL (5-40)
== END | disposition home or self-care (01) ==
LOC: LAB 09:12
PROVIDERS: PCP Internal Medicine; Referring Provider Internal Medicine Cardiovascular Disease; Visit Provider Internal Medicine Cardiovascular Disease
DX: I25.10 Atherosclerotic heart disease of native coronary artery without angina pectoris (principal)
CPT/HCPCS: 36415; 80048; 80061; 80076